=== PATIENT | female | born 1990 | race Caucasian/White ===

== ENCOUNTER → 2018-08-10 13:41 | Outpatient (REF) | payer MEDICAID, SELFPAY ==
[2018-08-10 18:05] LABS: Basophils % 0.4 % (0.1-2.0); Eosinophils # 0.1 K/mm3 (0.0-0.4); Eosinophils % 1.7 % (0.1-12.0); Hematocrit 40.4 % (37.0-47.0); Hemoglobin 12.9 g/dL (12.2-16.2); Lymphocytes # 1.5 K/mm3 (0.7-4.5); Lymphocytes % 23.8 K/mm3 (10-50); Mean Corpuscular HGB Conc 31.9 g/dL (31.8-35.4); Mean Corpuscular Hemoglobin 26.9 pg (27.0-31.2); Mean Corpuscular Volume 84.3 fl (81-99); Mean Platelet Volume 8.3 fl (7.4-10.4); Monocytes # 0.2 K/mm3 (0.1-1.0); Monocytes % 3.3 % (1.7-9.3); Neutrophils # 4.3 K/mm3 (1.8-7.8); Neutrophils % 70.9 % (37.0-80.0); Platelet Count 236 K/mm3 (142-424); Red Blood Count 4.79 M/mm3 (4.20-5.40); Red Cell Distribution Width 13.7 % (11.5-17.5); White Blood Count 6.1 K/mm3 (4.8-10.8)
[2018-08-10 18:33] LABS: Alanine Aminotransferase 31 U/L (12-78); Albumin Level 3.3 gm/dL (3.4-5.0); Albumin/Globulin Ratio 0.9 (1.1-1.8); Alkaline Phosphatase 95 U/L (46-116); Aspartate Amino Transferase 16 U/L (15-37); Bilirubin,Total 0.5 mg/dL (0.2-1.0); Blood Urea Nitrogen 12 mg/dL (7-18); Carbon Dioxide 30 mmol/L (21.0-32.0); Chloride 103 mmol/L (98-107); Chol/HDL Ratio 3.2 (1-3.5); Cholesterol 184 mg/dL (140-200); Creatinine,Serum 0.75 mg/dL (0.55-1.02); Estimated Glomerular Filt Rate 91 ml/min (>60); GFR (African American) 110 ML/MIN (>60); Globulin 3.7 gm/dl (1.3-3.2); Glucose 136 mg/dL (74-106); HDL Cholesterol 57 mg/dL (29-89); LDL Cholesterol 104 mg/dL (0-130); Sodium 141 mmol/L (136-145); T4 (Thyroxine) 9.5 ug/dl (4.7-13.3); Thyroid Stimulating Hormone 1.34 uIU/ml (0.358-3.740); Triglycerides 116 mg/dL (30-200); VLDL Cholesterol 23 mg/dL (0-40)
[2018-08-12 09:32] LABS: Vitamin D 25 Hydroxy 33.6 ng/mL (30.0-100.0)
== END ==
LOC: LAB 13:41
PROVIDERS: Visit Provider Nurse Practitioner Family
DX: R53.83 Other fatigue (principal)
CPT/HCPCS: 80053; 80061; 82652; 84436; 84443; 85025

== ENCOUNTER → 2019-04-07 11:06 | Outpatient (CLI) | payer MEDICAID, SELFPAY ==
[2019-04-07 13:05] LABS: Free Thyroxine Index 2.3 ug/dL (5.93-13.13); T4 (Thyroxine) 8.1 ug/dl (4.7-13.3); Thyroid Stimulating Hormone 2.57 uIU/ml (0.358-3.740); Triiodothryronine (T3) Uptake 29 % (31-39)
== END ==
PROVIDERS: Visit Provider Nurse Practitioner Obstetrics & Gynecology
DX: R53.83 Other fatigue (principal); R68.89 Other general symptoms and signs
CPT/HCPCS: 36415; 84436; 84443; 84479

== ENCOUNTER → 2020-07-19 18:22 | Outpatient (CLI) | payer MEDICAID, SELFPAY ==
[2020-07-19 19:46] LABS: Basophils % 0.5 % (0.1-2.0); Eosinophils # 0.2 K/mm3 (0.0-0.4); Eosinophils % 2.9 % (0.1-12.0); Hematocrit 32.2 % (37.0-47.0); Hemoglobin 9.9 g/dL (12.2-16.2); Lymphocytes # 1.9 K/mm3 (0.7-4.5); Lymphocytes % 28.5 % (10-50); Mean Corpuscular HGB Conc 30.6 g/dL (31.8-35.4); Mean Corpuscular Hemoglobin 21.5 pg (27.0-31.2); Mean Corpuscular Volume 70.4 fl (81-99); Mean Platelet Volume 8.7 fl (7.4-10.4); Monocytes # 0.2 K/mm3 (0.1-1.0); Neutrophils # 4.4 K/mm3 (1.8-7.8); Platelet Count 321 K/mm3 (142-424); Red Blood Count 4.58 M/mm3 (4.20-5.40); Red Cell Distribution Width 18.8 % (11.5-17.5); White Blood Count 6.8 K/mm3 (4.8-10.8)
[2020-07-19 19:55] LABS: Alanine Aminotransferase 21 U/L (12-78); Albumin Level 3.9 g/dl (3.5-5.0); Albumin/Globulin Ratio 1.1 (1.1-1.8); Alkaline Phosphatase 113 U/L (38-126); Anion Gap 11.4 mEq/L (5-15); Aspartate Amino Transferase 33 U/L (14-36); Bilirubin,Total 0.5 mg/dl (0.2-1.3); Blood Urea Nitrogen 12 mg/dl (7-17); Calcium 9.6 mg/dl (8.4-10.2); Carbon Dioxide 28 mmol/L (22.0-30.0); Chloride 104 mmol/L (98-107); Chol/HDL Ratio 3.5 (1-3.5); Cholesterol 183 mg/dl (140-200); Estimated Glomerular Filt Rate 116 ml/min (>60); GFR (African American) 140 ML/MIN (>60); Globulin 3.6 g/dL (1.3-3.2); Glucose 169 mg/dl (74-100); HDL Cholesterol 52 mg/dl (40-60); Potassium 4.4 mmoL/L (3.5-5.1); Sodium 139 mmol/L (136-145); Total Protein,Serum 7.5 g/dl (6.3-8.2); Triglycerides 100 mg/dl (30-150); VLDL Cholesterol 20 mg/dL (0-40)
[2020-07-19 20:02] LABS: Total Iron Binding Capacity 464 ug/dL (265-497)
[2020-07-19 20:07] LABS: Direct LDL Cholesterol 120.82 mg/dL (100-129)
[2020-07-19 20:12] LABS: 25-OH Vitamin D, Total 21.9 ng/mL (30-100)
[2020-07-19 20:13] LABS: T4 (Thyroxine) 10.4 ug/dl (5.53-11.0)
[2020-07-19 21:01] LABS: Iron 36 ug/dL (37-170)
[2020-07-19 21:31] LABS: Ferritin 12.3 ng/ml (6.24-137)
[2020-07-19 22:32] LABS: Thyroid Stimulating Hormone 1.48 uIU/mL (0.465-4.68)
[2020-07-20 17:32] LABS: Hemoglobin A1C 7.9 % (4.0-6.0)
== END ==
PROVIDERS: Visit Provider Physician Assistant
DX: I10 Essential (primary) hypertension (principal); R53.83 Other fatigue
CPT/HCPCS: 80053; 80061; 82306; 82728; 83036; 83540; 83550; 84436; 84443; 85025

== ENCOUNTER → 2022-01-02 16:00 | Outpatient (CLI) | payer MEDICAID, SELFPAY ==
[2022-01-02 20:08] LABS: Alanine Aminotransferase 18 U/L (12-78); Albumin Level 4.1 g/dl (3.5-5.0); Albumin/Globulin Ratio 1.1 (1.1-1.8); Alkaline Phosphatase 101 U/L (38-126); Aspartate Amino Transferase 23 U/L (14-36); Bilirubin,Total 0.4 mg/dl (0.2-1.3); Blood Urea Nitrogen 19 mg/dl (7-17); Calcium 8.9 mg/dl (8.4-10.2); Carbon Dioxide 28 mmol/L (22.0-30.0); Chloride 102 mmol/L (98-107); Chol/HDL Ratio 3.5 (1-3.5); Cholesterol 194 mg/dl (140-200); Estimated Glomerular Filt Rate 115 ml/min (>60); GFR (African American) 139 ML/MIN (>60); Globulin 3.6 g/dL (1.3-3.2); Glucose 97 mg/dl (74-100); HDL Cholesterol 56 mg/dl (40-60); Sodium 138 mmol/L (136-145); Total Protein,Serum 7.7 g/dl (6.3-8.2); Triglycerides 145 mg/dl (30-150); VLDL Cholesterol 29 mg/dL (0-40)
[2022-01-02 20:19] LABS: Direct LDL Cholesterol 116.85 mg/dL (100-129)
[2022-01-02 20:25] LABS: 25-OH Vitamin D, Total 33.5 ng/mL (30-100)
[2022-01-02 20:26] LABS: T4 (Thyroxine) 8.7 ug/dl (5.53-11.0)
[2022-01-02 20:33] LABS: Basophils # 0.1 K/mm3 (0-0.2); Basophils % 0.7 % (0.1-2.0); Eosinophils # 0.2 K/mm3 (0.0-0.4); Eosinophils % 2.7 % (0.1-12.0); Hematocrit 33.6 % (37.0-47.0); Hemoglobin 9.9 g/dL (12.2-16.2); Lymphocytes # 2.2 K/mm3 (0.7-4.5); Lymphocytes % 26.1 % (10-50); Mean Corpuscular HGB Conc 29.6 g/dL (31.8-35.4); Mean Corpuscular Hemoglobin 20.8 pg (27.0-31.2); Mean Corpuscular Volume 70.3 fl (81-99); Mean Platelet Volume 7.4 fl (7.4-10.4); Monocytes # 0.3 K/mm3 (0.1-1.0); Monocytes % 3.5 % (1.7-9.3); Neutrophils # 5.5 K/mm3 (1.8-7.8); Neutrophils % 67.1 % (37.0-80.0); Platelet Count 471 K/mm3 (142-424); Red Blood Count 4.77 M/mm3 (4.20-5.40); White Blood Count 8.3 K/mm3 (4.8-10.8)
[2022-01-02 21:21] LABS: Hemoglobin A1C 6.1 % (4.0-6.0)
== END ==
PROVIDERS: Visit Provider Nurse Practitioner Family
DX: E11.9 Type 2 diabetes mellitus without complications (principal); R53.83 Other fatigue; Z79.84 Long term (current) use of oral hypoglycemic drugs
CPT/HCPCS: 80053; 80061; 82306; 83036; 84436; 84443; 85025

== ENCOUNTER → 2022-10-15 08:53 | Outpatient (CLI) | payer MEDICAID, SELFPAY | PROVIDERS: PCP Physician Assistant; Visit Provider Physician Assistant | DX: Z01.818 Encounter for other preprocedural examination (principal); E66.9 Obesity, unspecified; Z68.42 Body mass index [BMI] 45.0-49.9, adult | CPT/HCPCS: 94060; 94726; 94729 ==

== ENCOUNTER → 2022-11-24 11:18 | Outpatient (CLI) | payer MEDICAID, SELFPAY ==
[2022-11-26 23:26] LABS: Neisseria gonorrhoeae, NAA Negative (Negative)
== END ==
PROVIDERS: PCP Student in an Organized Health Care Education/Training Program; Visit Provider Student in an Organized Health Care Education/Training Program
DX: N89.8 Other specified noninflammatory disorders of vagina (principal)
CPT/HCPCS: 87491; 87591

== ENCOUNTER → 2023-01-01 12:00 | Outpatient (CLI) | payer MEDICAID, SELFPAY ==
[2023-01-01 14:24] LABS: Basophils # 0.1 K/mm3 (0-0.2); Basophils % 0.9 % (0.1-2.0); Eosinophils # 0.2 K/mm3 (0.0-0.4); Eosinophils % 2.7 % (0.1-12.0); Hematocrit 38.2 % (37.0-47.0); Hemoglobin 11.8 g/dL (12.2-16.2); Lymphocytes # 1.8 K/mm3 (0.7-4.5); Lymphocytes % 25.1 % (10-50); Mean Corpuscular Hemoglobin 22.9 pg (27.0-31.2); Mean Platelet Volume 8.2 fl (7.4-10.4); Monocytes # 0.2 K/mm3 (0.1-1.0); Monocytes % 3.2 % (1.7-9.3); Neutrophils % 68.1 % (37.0-80.0); Platelet Count 516 K/mm3 (142-424); Red Blood Count 5.15 M/mm3 (4.20-5.40); Red Cell Distribution Width 17.5 % (11.5-17.5); White Blood Count 7.4 K/mm3 (4.8-10.8)
[2023-01-01 15:07] LABS: Alanine Aminotransferase 27 U/L (12-78); Albumin/Globulin Ratio 1.1 (1.1-1.8); Alkaline Phosphatase 111 U/L (38-126); Anion Gap 5.7 mEq/L (5-15); Aspartate Amino Transferase 28 U/L (14-36); Bilirubin,Total 0.6 mg/dl (0.2-1.3); Blood Urea Nitrogen 16 mg/dl (7-17); Calcium 9.1 mg/dl (8.4-10.2); Carbon Dioxide 30 mmol/L (22.0-30.0); Chloride 107 mmol/L (98-107); Chol/HDL Ratio 3.9 (1-3.5); Cholesterol 213 mg/dl (140-200); Estimated Glomerular Filt Rate 96 ml/min (>60); GFR (African American) 116 ML/MIN (>60); Globulin 3.5 g/dL (1.3-3.2); Glucose 117 mg/dl (74-100); HDL Cholesterol 54 mg/dl (40-60); Potassium 4.7 mmoL/L (3.5-5.1); Sodium 138 mmol/L (136-145); Total Protein,Serum 7.5 g/dl (6.3-8.2); Triglycerides 120 mg/dl (30-150); VLDL Cholesterol 24 mg/dL (0-40)
[2023-01-01 15:19] LABS: Direct LDL Cholesterol 125.99 mg/dL (100-129)
[2023-01-01 15:22] LABS: 25-OH Vitamin D, Total 43.4 ng/mL (30-100)
[2023-01-01 15:39] LABS: Thyroid Stimulating Hormone 1.18 uIU/mL (0.465-4.68)
[2023-01-01 16:09] LABS: Hemoglobin A1C 5.7 % (4.0-6.0)
== END ==
PROVIDERS: PCP Physician Assistant; Visit Provider Physician Assistant
DX: E11.9 Type 2 diabetes mellitus without complications (principal); Z79.84 Long term (current) use of oral hypoglycemic drugs; E66.01 Morbid (severe) obesity due to excess calories; Z68.42 Body mass index [BMI] 45.0-49.9, adult
CPT/HCPCS: 80053; 80061; 82306; 83036; 84443; 85025

== ENCOUNTER 2024-03-28 13:41 | Outpatient (CLI) | payer MEDICAID, SELFPAY ==
[2024-03-28 21:29] LABS: Basophils # 0.1 K/mm3 (0-0.2); Basophils % 0.7 % (0.1-2.0); Eosinophils # 0.1 K/mm3 (0.0-0.4); Eosinophils % 1.3 % (0.1-12.0); Hematocrit 43.6 % (37.0-47.0); Hemoglobin 14.1 g/dL (12.2-16.2); Lymphocytes # 2.2 K/mm3 (0.7-4.5); Lymphocytes % 23.7 % (10-50); Mean Corpuscular HGB Conc 32.3 g/dL (31.8-35.4); Mean Corpuscular Hemoglobin 28.6 pg (27.0-31.2); Mean Corpuscular Volume 88.6 fl (81-99); Mean Platelet Volume 9.5 fl (7.4-10.4); Monocytes # 0.4 K/mm3 (0.1-1.0); Neutrophils # 6.4 K/mm3 (1.8-7.8); Neutrophils % 70.2 % (37.0-80.0); Platelet Count 319 K/mm3 (142-424); Red Blood Count 4.92 M/mm3 (4.20-5.40); Red Cell Distribution Width 14.9 % (11.5-17.5); White Blood Count 9.1 K/mm3 (4.8-10.8)
[2024-03-28 22:20] LABS: Alanine Aminotransferase 36 U/L (12-78); Albumin/Globulin Ratio 1.3 (1.1-1.8); Alkaline Phosphatase 109 U/L (38-126); Anion Gap 15.9 mEq/L (5-15); Aspartate Amino Transferase 30 U/L (14-36); Bilirubin,Total 0.5 mg/dl (0.2-1.3); Blood Urea Nitrogen 15 mg/dl (7-17); Calcium 10.3 mg/dl (8.4-10.2); Carbon Dioxide 28 mmol/L (22.0-30.0); Chloride 103 mmol/L (98-107); Chol/HDL Ratio 3.8 (1-3.5); Cholesterol 218 mg/dl (140-200); Estimated Glomerular Filt Rate 95 ml/min (>60); GFR (African American) 115 ML/MIN (>60); Globulin 3.1 g/dL (1.3-3.2); Glucose 105 mg/dl (74-100); HDL Cholesterol 58 mg/dl (40-60); Potassium 4.9 mmoL/L (3.5-5.1); Sodium 142 mmol/L (136-145); Total Protein,Serum 7.1 g/dl (6.3-8.2); Triglycerides 103 mg/dl (30-150); VLDL Cholesterol 21 mg/dL (0-40)
[2024-03-28 22:31] LABS: Direct LDL Cholesterol 137.74 mg/dL (100-129)
[2024-03-28 22:41] LABS: 25-OH Vitamin D, Total 24.1 ng/mL (30-100)
[2024-03-28 22:43] LABS: Hemoglobin A1C 6.3 % (4.0-6.0)
[2024-03-28 22:53] LABS: Thyroid Stimulating Hormone 0.94 uIU/mL (0.465-4.68)
== END 2024-03-28 23:59 | disposition home or self-care (01) ==
LOC: LAB.DROPOF 03-29 13:41
PROVIDERS: PCP Physician Assistant; Visit Provider Physician Assistant
DX: E11.9 Type 2 diabetes mellitus without complications (principal); I10 Essential (primary) hypertension; E55.9 Vitamin D deficiency, unspecified; Z79.84 Long term (current) use of oral hypoglycemic drugs; Z79.899 Other long term (current) drug therapy
CPT/HCPCS: 80053; 80061; 82306; 83036; 84443; 85025

== ENCOUNTER 2025-07-13 13:25 | Outpatient (CLI) | payer MEDICAID, SELFPAY ==
--- OUTSIDE RECORDS SUMMARY | 2025-07-13 13:28 | XMS_ITS | Clinical Summary ---
Author Organization [facility] Address [address] [place] [address] Care Team Providers Care Apple Press Operator Name Role Phone Shira Canchola Primary Care Provider [phone] Allergies No known active allergies Medications * This document contains information received from the source organization and may not represent a complete record from that organization. ibuprofen (ADVIL,MOTRIN) 200 MG tablet Take 1 tablet by mouth Every 6 (Six) Hours As Needed for Mild Pain. Active Blood Glucose Monitoring Suppl (ONE TOUCH ULTRA 2) w/Device kit USE DIRCETED 0 Active Slow Fe 142 (45 Fe) MG tablet controlled-releas e Take 45 mg by mouth Daily. 0 Active OneTouch Ultra test strip TEST DAILY DIRECTED 0 Active TRUEplus Lancets 28G misc See Admin Instructions. 0 Active ascorbic acid (VITAMIN C) 500 MG tablet 3 Active Cholecalciferol (Vitamin D3) 25 MCG (1000 UT) capsule Take 1 capsule by mouth Daily. 3 Active metFORMIN (GLUCOPHAGE) 500 MG tablet Take 1 tablet by mouth Daily. Active Multiple Vitamins/Iron tablet Take 1 tablet by mouth Daily. 4 Active spironolactone (ALDACTONE) 25 MG tablet Take 1 tablet by mouth Daily. Active lisinopril (PRINIVIL,ZESTRIL ) 10 MG tabletIndications :Primary hypertension Take 1 tablet by mouth Daily. 30 tablet 11 4 Active metoprolol succinate XL (TOPROL-XL) 25 MG 24 hr tablet TAKE 1 TABLET BY MOUTH EVERY DAY 90 tablet 3 5 Active Active Problems Problem Noted Date Diagnosed Date Hypersomnia 02/04/2024 Assessment & Plan (02/04/2024 12:12 PM EDT): Continues to have excessive daytime sleepiness and fatigue and would like to be re-tested for sleep apnea. She is unable to go to the sleep lab for PSG due to her children not having a merchandising internship. Patient sister is here with her today and says she gets her kids off to school but goes back to bed and sleeps for hours. Patient c/o EDS, fatigue, and frequent napping. Pre-operative cardiovascular examination 023 Assessment & Plan (12/30/2022 3:49 PM EST): Plan to proceed Former smoker Fatigue Insomnia Dyspepsia Hypertension Assessment & Plan (02/04/2024 12:15 PM EDT): Hypertension is stable and controlled Continue current treatment regimen. Blood pressure will be reassessed at next follow up . Untreated sleep apnea may potentiate HTN. Refill Lisinopril 10mg daily. Assessment & Plan (12/30/2022 3:49 PM EST): Stable. Continue plan of care. Treating obesity will likely benefit blood pressure. Dyspnea on exertion Morbid obesity with BMI of 50.0-59.9, adult Assessment & Plan (12/30/2022 3:49 PM EST): Patient plans to have very surgical intervention at [facility]. Hyperlipidemia Vitamin D deficiency Heartburn Anxiety Depression Diabetes Overview (08/14/2020): newly dx, on Metformin, never on insulin Current use of aspirin Overview (08/14/2020): given DM dx Iron deficiency Overview (08/14/2020): on daily PO supplements H. pylori infection Overview (08/23/2020): UBT (+) - PrevPak RX 08/23/20 Encounters Date Type Department Care Team Description 04/21/2025 Refill [facility] [address] [place] [address] Carol Farmer APRN Med Refill from Last 3 Months Family History Medical History Relation Name Comments Diabetes Father Heart attack Father Sleep apnea Father Stroke Father Diabetes Maternal Grandmother Diabetes Mother Heart attack Mother Stroke Mother Diabetes Paternal Grandfather Heart attack Paternal Grandfather Diabetes Paternal Grandmother Hypertension Sister 1 Obesity Sister 1 Sleep apnea Sister 1 Hypertension Sister 2 Obesity Sister 2 Sleep apnea Sister 2 Relation Name Status Comments Father (Age 60) Maternal Grandmother Mother (Age 36) Paternal Grandfather Paternal Grandmother Sister 1 Alive Sister 2 Alive Social History Tobacco Use Types Packs/Day Years Used Date Smoking Tobacco: Former Cigarettes 0.5 1 2 004 - 2005 Passive Smoke Exposure: Never Smokeless Tobacco: Never Tobacco Cessation:Counseling Given: No Alcohol Use Standard Drinks/Week Comments Never 0 (1 standard drink = 0.6 oz pur e alcohol) AUDIT-C Answer Date Recorded Q1: How often do you have a drink containing alc ohol? Never 07/04/2020 Average Number of Drinks Not on file 020 Frequency of Binge Drinking Not on file 06/10 Abuse Screen Answer Date Recorded Unsafe at Home or Work/School Not on file Feels Threatened by Someone? Not on file 07/2023 Does Anyone Keep You from Co ntacting Others or Doint Things Outside the Home? Not on file 08/17/2023 Physical Sign of Abuse Present Not on file 1 Housing Stability Answer Date Recorded Current Living Arrangements Not on file 07/2023 Potentially Unsafe Housing Conditions Not on chidi e 08/17/2023 Family and Community Support Answer Bebo e Recorded Help with Day-to-Day Activities Not on file 08/17/2023 Lonely or Isolated Not on file 08/17/2023 Employment Answer Date Recorded Do you want help finding or keeping work or a juana b? Not on file 08/17/2023 Disabilities Answer Date Recorded Concentrating, Remembering, or Making Decisions Difficulty Not on file 08/17/2023 Doing Errands Independently Difficulty Not on fi le 08/17/2023 Education Answer Date Recorded Help with school or training? Not on file Preferred Language Not on file 08/17/2023 Comments Unknown Sex and Gender Information Value Date Recorded Sex Assigned at Not on file Legal Sex Female 1:29 PM EDT Gender Identity Not on file Sexual Orientation Not on file Last Filed Vital Signs Vital Sign Reading Time Taken Comments Blood Pressure 128/72 02/04/2024 10:58 AM EDT Pulse 67 02/04/2024 10:58 AM EDT Temperature 36.9 C (98.5 F) 08/14/2020 7:50 AM EDT Respiratory Rate 18 08/14/2020 7:50 AM EDT Oxygen Saturation 98% 02/04/2024 10:58 AM EDT Inhaled Oxygen Concentration - - Weight 149 kg (328 lb) 02/04/2024 10:58 AM EDT Height 167.6 cm (5' 6 ) 02/04/2024 10:58 AM EDT Body Mass Index 52.94 02/04/2024 10:58 AM EDT Plan of Treatment Health Maintenance Due Date Last Done Comments Annual Gynecologic Pelvic an d Breast Exam 1988 DIABETIC EYE EXAM 1998 DIABETIC FOOT EXAM 1998 URINE MICROALBUMIN-CREATININ E RATIO (uACR) 1998 Hepatitis B (2 of 3 - 3-dose series) 02/14/200001/07 Pneumococcal Vaccine 0-49 (1 of 2 - PCV) 2007 PAP SMEAR 2009 TDAP/TD VACCINES (2 - Tdap) 01/05/2013 01/05/2003 ANNUAL PHYSICAL 07/04/2020 HEPATITIS C SCREENING 07/04/2020 HEMOGLOBIN A1C 02/12/2021 08/14/2020 LIPID PANEL 11/13/2023 11/13/2022, 010 03/2023, 08/14/2020 COVID-19 Vaccine ( season) 2024, 07/16/2021 INFLUENZA VACCINE 08/09/2025 08/10/2018, 10/01/2010 Procedures Procedure Name Priority Date/Time Associated Diagnosis Comments HEMOGLOBIN A1C Routine 08/14/2020 10:44 AM EDT Diabetes mellitus type 2 in obese Hypertension, unspecified type Hyperlipidemia, unspecified hyperlipidemia type Heartburn Dyspepsia LIPID PANEL Routine 08/14/2020 10:44 AM EDT Diabetes mellitus type 2 in obese Hypertension, unspecified type Hyperlipidemia, unspecified hyperlipidemia type Heartburn Dyspepsia from Last 3 Months or Most Recently Relevant to Health Maintenance Results * (ABNORMAL) Hemoglobin A1c (08/14/2020 10:44 AM EDT) Hemoglobin A1C 6.60(H) 4.80 - 5.60 % [facility] Comment: Hemoglobin A1C Ranges: Increased Risk for Diabetes 5.7% to 6.4% Diabetes >= 6.5% Diabetic Goal < 7.0% Blood 08/14/2020 10:4 4 AM EDT 08/14/2020 Narrative [facility] ([facility]) - 08/15/2020 6:07 PM EDT Performed at: [address] [place] [address] [id number] Rehabilitation Manager: Michael Diane MD, Phone: [phone] Patient Fasting: N us Nadia YEE LAB BLOOD ORDERABLES Final Result [facility] ([facility]) [address] [place] [address], [facility] [address] [place] [address], [place] [phone] * Lipid Panel (08/14/2020 10:44 AM EDT) Total Cholesterol 118 0 - 200 mg/dL [facility] Triglycerides 84 0 - 150 mg/dL [facility] HDL Cholesterol 48 40 - 60 mg/dL [facility] VLDL Cholesterol Roney 16.8 mg/dL [facility] LDL Chol Calc (NIH) 53 0 - 100 mg/dL [facility] Blood 08/14/2020 10:4 4 AM EDT 08/14/2020 Narrative [facility] ([facility]) - 08/15/2020 6:07 PM EDT Performed at: [address] [place] [address] [id number] Rehabilitation Manager: Michael Diane MD, Phone: [phone] Patient Fasting: N us Nadia YEE LAB BLOOD ORDERABLES Final Result [facility] ([facility]) [address] [place] [address], [place] [phone] [facility] [address] [place] [address], [place] [phone] from Last 3 Months or Most Recently Relevant to Health Maintenance Insurance [facility] MEDICAID Care Teams Apple Press Operator Relationship Specialty Start Date End Date Shira Canchola PA PCP - General Physician Retail Advertising Sales Manager 01/20/20
== END 2025-07-13 23:59 | disposition home or self-care (01) ==
LOC: LAB 13:26
PROVIDERS: PCP Physician Assistant; Visit Provider Obstetrics & Gynecology
DX: Z34.90 Encounter for supervision of normal pregnancy, unspecified, unspecified trimester (principal); N92.6 Irregular menstruation, unspecified
CPT/HCPCS: 36415; 84144; 84702

== ENCOUNTER 2025-07-17 01:31 | Emergency (ER) | payer MEDICAID, SELFPAY ==
--- NOTE | 2025-07-17 01:34 | HMH.EDGENADL ---
Discharge Plan Disposition Patient Disposition: Home, Self-Care Condition: Good Prescriptions Prescriptions: No Action (DME) Blood Glucose Test Strip See Rx Instructions .ROUTE .MEDSUPPLY Qty: 100 2RF Rx Instructions: daily As directed (DME) lancets [CareTouch Safety Lancets] 28 gauge misc See Rx Instructions .ROUTE .MEDSUPPLY Qty: 100 2RF Rx Instructions: daily As directed metoprolol succinate 25 mg tablet extended release 24 hr 25 mg PO (DME) Dexcom G6 Sensor Device See Rx Instructions .Route Qty: 3 5RF Rx Instructions: As directed (DME) Dexcom G6 Poultry Farm Supervisor Misc See Rx Instructions .Route Qty: 1 0RF Rx Instructions: As directed (DME) Dexcom G6 Transmitter Device See Rx Instructions .Route Qty: 1 0RF Rx Instructions: As directed lisinopril 10 mg tablet 10 mg PO DAILY Patient Comments: TAKE 1 TABLET BY MOUTH DAILY (DME) Blood Glucose Test Strip See Rx Instructions .Route Qty: 100 5RF Rx Instructions: BID testing (DME) blood-glucose meter [Blood Glucose Monitoring] Kit See Rx Instructions .ROUTE .MEDSUPPLY Qty: 1 0RF Rx Instructions: As directed alcohol swabs [Alcohol Pads] Pads, Medicated 1 pad topical BID Qty: 100 5RF (DME) lancets [Acti-Hernan Lancets] 28 gauge misc See Rx Instructions .Route Qty: 100 3RF Rx Instructions: BID testing ergocalciferol (vitamin D2) 1,250 mcg (50,000 unit) capsule 50,000 unit PO QWEEK 90 Days Qty: 14 3RF (DME) blood-glucose meter Misc See Rx Instructions .ROUTE .MEDSUPPLY Qty: 1 0RF Rx Instructions: As directed mebendazole 100 mg tablet,chewable 100 mg PO ONCE 1 Days Qty: 2 1RF Rx Instructions: Take one dose now; repeat in 2 weeks; repeat if still worms present Proctofoam HC 1-1 % foam 1 applic ID QID PRN (Reason: hemorrhoids) Qty: 10 0RF ferrous sulfate 324 mg (65 mg iron) tablet,delayed release (DR/EC) See Rx Instructions .ROUTE .COMPLEX Qty: 180 0RF Dose Instruction: TAKE 1 TABLET BY MOUTH TWICE DAILY Rx Instructions: TAKE 1 TABLET BY MOUTH TWICE DAILY spironolactone 25 mg tablet See Rx Instructions .ROUTE .COMPLEX Qty: 90 0RF Dose Instruction: TAKE 1 TABLET BY MOUTH DAILY Rx Instructions: TAKE 1 TABLET BY MOUTH DAILY ibuprofen 800 mg tablet 800 mg PO Q8H PRN (Reason: pain/fev) Qty: 30 0RF acetaminophen [Tylenol Extra Strength] 500 mg tablet 500 mg PO Q6H PRN (Reason: fever or pain) Qty: 30 0RF guaifenesin [Mucinex] 1,200 mg tablet extended release 12hr 1,200 mg PO BID Qty: 20 0RF atorvastatin 20 mg tablet 20 mg PO HS Qty: 30 2RF cholecalciferol (vitamin D3) 25 mcg (1,000 unit) capsule 1,000 unit PO DAILY Qty: 90 1RF metformin 500 mg tablet extended release 24 hr See Rx Instructions .ROUTE .COMPLEX Qty: 90 0RF Dose Instruction: TAKE 1 TABLET BY MOUTH DAILY Rx Instructions: TAKE 1 TABLET BY MOUTH DAILY Rybelsus 3 mg tablet See Rx Instructions .ROUTE .COMPLEX Qty: 30 0RF Dose Instruction: TAKE 1 TABLET BY MOUTH DAILY Rx Instructions: TAKE 1 TABLET BY MOUTH DAILY multivitamin with iron Tablet See Rx Instructions .ROUTE .COMPLEX Qty: 90 0RF Dose Instruction: TAKE 1 TABLET BY MOUTH DAILY Rx Instructions: TAKE 1 TABLET BY MOUTH DAILY ascorbic acid (vitamin C) [Vitamin C] 500 mg tablet See Rx Instructions .ROUTE .COMPLEX Qty: 60 0RF Dose Instruction: TAKE 2 TABLETS BY MOUTH DAILY FOR 30 DAYS; THEN TAKE 1 TABLET BY MOUTH TWICE DAILY WITH IRON Rx Instructions: TAKE 2 TABLETS BY MOUTH DAILY FOR 30 DAYS; THEN TAKE 1 TABLET BY MOUTH TWICE DAILY WITH IRON semaglutide 7 mg tablet 7 mg PO DAILY Qty: 90 3RF Referrals Follow up/Referrals: Shira Canchola PA [Primary Care Provider, Medical] - See instructions Activity Restrictions/Add. Instructions Additional Instructions/Restrictions: Please follow-up with your HOT CAR OPERATOR. Please return to the emergency department if you develop any new or worsening symptoms or become concerned for your health. Clinical Impressions Clinical Impression: Vaginal bleeding affecting early Instructions Patient Instructions: DI for Acute Abdominal Pain Print Language Print Language: Ukrainian Discharge ED Provider: Bertrand Ca General Adult HPI General Chief complaint: Abdominal Pain Stated complaint: 6 wks antepartum, bleeding, pain Time Seen by Provider: 07/17/25 01:34 History of Present Illness HPI narrative: 35-year-old female with history of obesity, diabetes, hypertension presents for vaginal bleeding in early . She reports she had sudden onset of moderate vaginal bleeding shortly prior to arrival, she noticed that upon awakening. She also has some left lower quadrant/left pelvic abdominal pain associated with it. She denies any urinary symptoms. She has not had any trouble with bleeding in any of her other pregnancies. She think she is about 6 weeks . Related Data Home Medications ?Medication ?Instructions ?Recorded ?Confirmed metoprolol succinate 25 mg 25 mg PO 01/01/23 03/28/24 tablet,extended release 24 hr lisinopril 10 mg tablet 10 mg PO DAILY 03/28/24 03/28/24 Previous Rx's ?Medication ?Instructions ?Recorded blood sugar diagnostic (Blood #100 ea 01/02/22 Glucose Test strips) lancets 28 gauge (CareTouch Safety #100 ea 01/02/22 Lancets) blood-glucose meter #1 ea 01/03/22 ergocalciferol (vitamin D2) 1,250 50,000 unit PO QWEEK 90 days #14 01/03/22 mcg (50,000 unit) capsule caps blood-glucose sensor (Dexcom G6 #3 ea 01/01/23 Sensor device) blood-glucose transmitter (Dexcom #1 ea 01/01/23 G6 Transmitter device) blood-glucose,packaging sales representative,cont #1 ea 01/01/23 (Dexcom G6 Poultry Farm Supervisor) mebendazole 100 mg chewable tablet 100 mg PO ONCE 1 day #2 tabs 01/18/24 alcohol swabs (Alcohol Pads) 1 pad topical BID #100 ea 03/28/24 blood sugar diagnostic (Blood #100 ea 03/28/24 Glucose Test strips) blood-glucose meter (Blood Glucose #1 03/28/24 Monitoring kit) lancets 28 gauge (Acti-Hernan #100 ea 03/28/24 Lancets) hydrocortisone 1 %-pramoxine 1 % 1 applic ID QID PRN hemorrhoids 05/19/24 rectal foam (Proctofoam HC) #10 grams ferrous sulfate 324 mg (65 mg See Rx Instructions .Route 06/23/24 iron) tablet,delayed release .COMPLEX #180 tabs spironolactone 25 mg tablet See Rx Instructions .Route 06/23/24 .COMPLEX #90 tabs acetaminophen 500 mg tablet 500 mg PO Q6H PRN fever or pain 06/30/24 (Tylenol Extra Strength) #30 tabs guaifenesin 1,200 mg tablet, 1,200 mg PO BID #20 tabs 06/30/24 extended release 12 hr (Mucinex) ibuprofen 800 mg tablet 800 mg PO Q8H PRN pain/fev #30 tabs 06/30/24 atorvastatin 20 mg tablet 20 mg PO HS #30 tabs 07/07/24 cholecalciferol (vitamin D3) 25 1,000 unit PO DAILY #90 caps 07/07/24 mcg (1,000 unit) capsule metformin 500 mg tablet,extended See Rx Instructions .Route 07/28/24 release 24 hr .COMPLEX #90 tabs semaglutide 3 mg tablet (Rybelsus) See Rx Instructions .Route 07/28/24 .COMPLEX #30 tabs ascorbic acid (vitamin C) 500 mg See Rx Instructions .Route 08/22/24 tablet (Vitamin C) .COMPLEX #60 tabs multivitamin with iron See Rx Instructions .Route 08/22/24 .COMPLEX #90 tabs semaglutide 7 mg tablet 7 mg PO DAILY #90 tabs 09/02/24 Allergies Allergy/AdvReac Type Severity Reaction Status Date / Time NO KNOWN ALLERGIES Allergy Uncoded 03/28/24 13:30 [facility] Disclaimer: The information contained in this section may have been updated after the patient was seen, as this information can be updated by other users. Medical History BMI 50.0-59.9, adult Abnormal weight Hypertension Anxiety Obesity Social History Smoking Status: Never smoker alcohol intake: never substance use type: denies use current occupational status: unemployed Travel in the last 8 weeks?: None Have you lived/traveled outside US in past 30 days?: No Contact w/someone who lives/traveled outside US past 30 days?: No Exposure to someone with infectious disease in past 14 days?: No Do you have a fever (greater than 100.4 F or 38 C)?: No Have you tested positive for COVID-19?: No Exposed to someone with COVID-19 in past 14 days?: No Do you have a sore throat?: No Do you have a cough?: No Do you have any weakness?: No Do you have any diarrhea?: No Are you experiencing any unusual bleeding?: Yes Do you have any muscle aches/pain?: No Do you have any abdominal pain?: No Are you experiencing loss of taste or smell?: No Other Medical History Have you received the Flu Vaccine for this season: No Have you received the Pneumonia Vaccine: No ROS Obtained: Yes All systems reviewed & no additional complaints except as documented Physical Exam General General appearance: alert and in no apparent distress Head Head exam: atraumatic and normocephalic Eye Eye exam: Present normal appearance, PERRL and EOMI ENT ENT exam: Present normal oropharynx and normal external ear exam Neck Neck exam: Present normal inspection and full ROM Chest Chest inspection: Present normal inspection and symmetric chest wall rise; Absent tenderness Respiratory Respiratory exam: Present normal lung sounds bilaterally; Absent respiratory distress Cardiovascular Cardiovascular exam: Present regular rate and normal rhythm Abdominal Exam Abdominal exam: Present soft; Absent distention, tenderness or guarding Extremities Exam Extremities exam: Present normal inspection; Absent edema or joint swelling Back Exam Back exam: Present normal inspection; Absent tenderness Neurological Exam Neurological exam: Present alert and oriented X3; Absent motor sensory deficit Psychiatric Psychiatric exam: Present normal affect and normal mood Skin Skin exam: Present warm, dry and normal color Lymphatic Lymphatic Findings: no adenopathy Medical Decision Making Medical Records Medical records reviewed: Yes I reviewed the patient's medical records. Screening: Per USPSTF and CDC recommendations, given the prevalence of disease in our region, it is our hospital?s policy to screen for HIV and viral Hepatitis for all patients aged 18 and over and those with ongoing risk factors. Jim Inquiry Pt receiving controlled substance: No Jim was queried for this patient: No Vital Signs: 07/17/25 01:43 07/17/25 02:45 07/17/25 04:02 Temperature 97.9 F 97.9 F Temperature Source Oral Oral Pulse Rate 62 78 Pulse Rate [Left] 75 Respiratory Rate 16 16 Blood Pressure 109/69 L 118/76 Blood Pressure [Right Arm] 154/75 H Blood Pressure Mean [Right Arm] 101 Blood Pressure Source Automatic Cuff Blood Pressure Source [Right Arm] Automatic Cuff Blood Pressure Position Sitting Blood Pressure Position [Right Arm] Sitting 02 Sat by Pulse Oximetry 95 100 Oxygen Delivery Method Room Air Room Air Lab Data Lab results reviewed: Yes I reviewed the patient's lab results. Lab Results 07/17/25 01:45: WBC 8.7, RBC 4.46, Hgb 13.2, Hct 38.7, MCV 86.8, MCH 29.6, MCHC 34.1, RDW 13.0, Plt Count 272, MPV 9.9, Neut % (Auto) 63.0, Lymph % (Auto) 28.5, [place] % (Auto) 6.1, Eos % (Auto) 1.5, Baso % (Auto) 0.6, Neut # (Auto) 5.5, Lymph # (Auto) 2.5, [place] # (Auto) 0.5, Eos # (Auto) 0.1, Baso # (Auto) 0.1, Sodium 139, Potassium 4.3, Chloride 107, Carbon Dioxide 26, Anion Gap 10.3, BUN 17, Creatinine 0.70, Estimated Creat Clear 187, Estimated GFR 94, Est GFR ( Amer) 114, Glucose 113 H, Calcium 9.7, Total Bilirubin 0.2, AST 24, ALT 19, Alkaline Phosphatase 69, Total Protein 6.8, Albumin 3.9, Globulin 2.9, Albumin/Globulin Ratio 1.3, HCG, Quant 59320 H 07/17/25 01:45 07/17/25 01:45 Orders (Tests/Meds): ORDERS Category Date Time Status Beta HCG, Quant [HCG,Quantitative] Stat Lab 07/17/25 01:45 Completed CBC w/Auto Diff [Complete Blood Count Auto Diff] Stat Lab 07/17/25 01:45 Completed CMP [Comprehensive Metabolic Panel] Stat Lab 07/17/25 01:45 Completed US OB transvaginal Stat Ultrasound 07/17/25 02:51 Completed Medical Decision Narrative: 35-year-old female G3, P2 at approximately 6 weeks presents for vaginal bleeding and left pelvic pain with of unknown location. History was obtained via interactive discussion with patient, family, chart review. On arrival, patient is [afebrile, hemodynamically stable, satting appropriately, alert, oriented x4, GCS 15], moving all extremities spontaneously. Full physical exam performed and significant for no significant abdominal tenderness on exam Differential includes but is not limited to ruptured ectopic , miscarriage, subchorionic hemorrhage, vaginal tear Workup initiated including CBC CMP quantitative beta-hCG, transvaginal ultrasound to assess for ectopic . On re-evaluation, patient [remains afebrile, HD stable.] Laboratory workup independently interpreted by me and significant for appropriately increasing quantitative beta-hCG, no anemia, normal renal function.. Imaging independently interpreted by me and significant for viable intrauterine without evidence of ectopic. See radiology read for full review of final results. Given patient history, exam and workup, patient's presentation most likely represents early bleeding, possibly resulting from small subchorionic hemorrhage. I discussed with patient that vaginal bleeding in early is common, but can be a sign of impending complication/miscarriage. I recommended that patient follow-up with her HOT CAR OPERATOR. Return precautions were given. Procedures Risk/Benefits of Procedure(s) Were Explained: Yes Critical Care Critical Care Time Critical Care Time: No
--- OUTSIDE RECORDS SUMMARY | 2025-07-17 01:37 | XMS_ITS | Referral Summary ---
Author Organization [employer] ([place], [place], [place], [place]) Address [address] [place] [address] Care Team Providers Care Education Paraprofessional Name Role Phone Shira Canchola PA-C Primary Care Provider [phone] Allergies No known active allergies Medications ergocalciferol (Vitamin D2) 1,250 mcg (50,000 unit) capsule Take 50,000 Units by mouth once a week. Active cholecalciferol , vitamin D3, 25 mcg (1,000 unit) capsule Take 1,000 Units by mouth daily. Active ascorbic acid, vitamin C, (ascorbic acid with soha hips) 500 MG tablet Take 500 mg by mouth daily. Active lisinopriL (PRINIVIL,ZESTR IL) 10 MG tablet Take 10 mg by mouth daily. Active metFORMIN (GLUCOPHAGE) 500 MG tablet Take 500 mg by mouth 2 (two) times daily with breakfast and dinner. Active metoprolol succinate (TOPROL-XL) 25 MG 24 hr tablet Take 25 mg by mouth daily. Active aspirin 81 MG EC tablet Take 81 mg by mouth daily. Active ferrous sulfate 325 (65 FE) MG EC tablet Take 325 mg by mouth 2 (two) times daily. Active Social History Tobacco Use Types Packs/Day Years Used Date Smoking Tobacco: Never Assessed Family and Community Support Answer Bebo e Recorded Help with Day to Day Activities Not on file 11/28/2023 Feeling Lonely or Isolated Not on file 11/28 Educational Attainment Answer Date Raymond rded Speak language other than Sammarinese at home Not on file 11/28/2023 Want help with school or training Not on file 11/28/2023 Substance Use Answer Date Recorded Used prescription meds for non-medical reasons N ot on file 11/28/2023 Used illegal drugs past 12 months Not on file 11/28/2023 Comments Unknown Sex and Gender Information Value Date Recorded Sex Assigned at Not on file 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 Gender Identity Not on file Sexual Orientation Not on file Last Filed Vital Signs Vital Sign Reading Time Taken Comments Blood Pressure 138/78 11/13/2022 7:10 AM EST Pulse 68 11/13/2022 7:10 AM EST Temperature 36.7 C (98.1 F) 11/13/2022 7:10 AM EST Respiratory Rate - - Oxygen Saturation 98% 11/13/2022 7:10 AM EST Inhaled Oxygen Concentration - - Weight 139.3 kg (307 lb) 11/13/2022 7:10 AM EST Height 167.6 cm (5' 6 ) 11/13/2022 7:10 AM EST Body Mass Index 49.55 11/13/2022 7:10 AM EST Plan of Treatment Not on file Procedures Procedure Name Priority Date/Time Associated Diagnosis Comments LIPID PANEL Add-On 11/13/2022 7:08 AM EST from Last 3 Months or Most Recently Relevant to Health Maintenance Results * (ABNORMAL) Lipid panel (11/13/2022 7:08 AM EST) Triglycerides 97 0 - 249 mg/dL 11/13/2022 9:58 AM [facility] Cholesterol 164 0 - 199 mg/dL 11/13/2022 9:58 AM [facility] Comment: 200 to 239 mg/dL = Moderate (borderline) >239 mg/dL = High HDL Cholesterol 47 >=40 mg/dL 11/13/2022 9:58 AM [facility] Comment: >=60 mg/dL = Desirable <40 mg/dL = Increased Risk All other components are listed individually or are calculations VLDL Cholesterol 19.4 5 - 40 mg/dL 11/13/2022 9:58 AM [facility] Cholesterol/HDL ratio 3.5(H) 0.0 - 3.2 11/13/2022 9:58 AM [facility] LDl/HDL Ratio 2 0 - 4 11/13/2022 9:58 AM [facility] LDL Cholesterol, Calculated 98 0 - 99 mg/dL 11/13/2022 9:58 AM EST [facility] RISK COMP 3 11/13/2022 9:58 AM EST [facility] Blood Venipuncture / Unknown 11/13/2022 7:08 AM EST 11/13/2022 7:14 AM EST us Talia Rhodes PA-C LAB BLOOD ORDERABLES Fin al Result [facility] [address] [facility] [address] [phone] from Last 3 Months or Most Recently Relevant to Health Maintenance Insurance [facility] Advance Directives For more information, please contact: [phone] Documents on File Type Date Recorded Patient Can Technician Expl anation Advance Directives and [place]ansisco g Will 11/13/2022 6:33 AM * Full Code (Latest Code Status on File) Date Activated Date Inactivated Comments 11/13/2022 5:57 AM 11/14/2022 5:18 AM Care Teams Education Paraprofessional Relationship Specialty Start Date End Date Shira Canchola PA-C [address] [place] [address] PCP - General Physician Biomass Production Manager 11/13/22
--- OUTSIDE RECORDS SUMMARY | 2025-07-17 01:37 | XMS_ITS | Clinical Summary ---
Author Organization [facility] Address [address] [place] [address] Care Team Providers Care Cordwood Cutter Helper Name Role Phone Shira Canchola Primary Care Provider [phone] Allergies No known active allergies Medications * [...] due to her children not having a geology technician. Patient sister is here with her today [...] plans to have very surgical intervention at [facility]. Hyperlipidemia Vitamin D deficiency Heartburn Anxiety Depression Diabetes Overview (08/14/2020): newly dx, on Metformin, never on insulin Current use of aspirin Overview (08/14/2020): given DM dx Iron deficiency Overview (08/14/2020): on daily PO supplements H. pylori infection Overview (08/23/2020): UBT (+) - PrevPak RX 08/23/20 Encounters Date Type Department Care Team Description 04/21/2025 Refill [facility] [address] [place] [address] [...] A1C 02/12/2021 08/14/2020 LIPID PANEL 11/13/2023 11/13/2022, 0 03/2023, 08/14/2020 COVID-19 Vaccine ( season) 2025, 07/16/2021 INFLUENZA VACCINE 08/09/2025 08/10/2018, 10/01/2010 Procedures [...] - 08/15/2020 6:07 PM EDT Performed at: [address] [place] [address] [id number] Transaction Coordinator: Michael Diane MD, Phone: [phone] Patient Fasting: N us Nadia YEE LAB BLOOD ORDERABLES Final Result [facility] [address] [place] [address], [facility] [address] [place] [address], [place] [phone] * Lipid Panel (08/14/2020 10:44 AM EDT) [...] - 08/15/2020 6:07 PM EDT Performed at: [address] [place] [address] [id number] Transaction Coordinator: Michael Diane MD, Phone: [phone] Patient Fasting: N us Nadia YEE LAB BLOOD ORDERABLES Final Result [facility] [address] [place] [address], [place] [phone] [facility] [address] [place] [address], [place] [phone] from Last 3 Months or Most Recently Relevant to Health Maintenance Insurance [facility] MEDICAID Care Teams Cordwood Cutter Helper Relationship Specialty Start Date End Date Shira Canchola PA PCP - General Physician Mercantile Reporter 01/20/20
--- OUTSIDE RECORDS SUMMARY | 2025-07-17 01:37 | XMS_ITS | Clinical Summary ---
Author Organization [employer] ([place], [place], [place], [place]) Address [address] [place] [address] Care Team Providers Care Naval Designer Name Role Phone Shira Canchola PA-C Primary Care Provider [phone] Allergies No known active allergies Medications ergocalciferol [...] Date Raymond rded Speak language other than Samoan at home Not on file 11/28/2023 Want help with school or training Not on file 11/28/2023 Substance Use Answer Date Recorded Used prescription meds for non-medical reasons N ot on file 11/28/2023 Used illegal drugs past 12 months Not on file 11/28/2023 Comments Unknown Sex and Gender Information Value Date Recorded Sex Assigned at Not on file 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 Gender Identity Not on file Sexual Orientation [...] 11/13/2022 7:10 AM EST Plan of Treatment Health Maintenance Due Date Last Done Comments Depression Screening (12+) 2000 Tobacco Cessation Counseling and Screening (12+) 2000 HIV Screening 2003 Hepatitis C Screening 2006 Pap Smear 2009 DTAP/TDAP/TD VACCINES (2 - T d or Tdap) 01/05/2013 01/05/2003 COVID-19 VACCINE (2024-2 6 season) 2025 08/06/2021, 07/16/2021 Influenza Vaccine (#1) 2025 Lipid Panel 11/13/2025 11/13/2022 Pneumococcal Vaccine: 0-49 Years Aged Out No longer eligible b ased on patient's age to complete this topic Procedures Procedure Name Priority Date/Time Associated Diagnosis Comments LIPID PANEL Add-On 11/13/2022 7:08 AM EST from Last 3 Months or Most Recently Relevant to Health Maintenance Results * (ABNORMAL) Lipid panel (11/13/2022 7:08 AM EST) Triglycerides 97 0 - 249 mg/dL 11/13/2022 9:58 AM EST [facility] Cholesterol 164 0 - 199 mg/dL 11/13/2022 9:58 AM EST [facility] Comment: 200 to 239 mg/dL = Moderate (borderline) >239 mg/dL = High HDL Cholesterol 47 >=40 mg/dL 11/13/2022 9:58 AM EST [facility] Comment: >=60 mg/dL = Desirable <40 mg/dL = Increased Risk All other components are listed individually or are calculations VLDL Cholesterol 19.4 5 - 40 mg/dL 11/13/2022 9:58 AM EST [facility] Cholesterol/HDL ratio 3.5(H) 0.0 - 3.2 11/13/2022 9:58 AM [facility] LDl/HDL Ratio 2 0 - 4 11/13/2022 9:58 AM [facility] LDL Cholesterol, Calculated 98 0 - 99 mg/dL 11/13/2022 9:58 AM [facility] RISK COMP 3 11/13/2022 9:58 AM [facility] Blood Venipuncture / Unknown 11/13/2022 7:08 AM EST 11/13/2022 7:14 AM EST us Talia Rhodes PA-C LAB BLOOD ORDERABLES Fin al Result [facility] [address] [phone] from Last 3 Months or Most Recently Relevant to Health Maintenance Insurance [facility] Advance Directives For more information, please contact: [phone] Documents on File Type Date Recorded Patient Automation Qa Lead Expl anation Advance Directives and Livin g Will 11/13/2022 6:33 AM * Full Code (Latest Code Status on File) Date Activated Date Inactivated Comments 11/13/2022 5:57 AM 11/14/2022 5:18 AM Care Teams Naval Designer Relationship Specialty Start Date End Date Shira Canchola, SHELLIE [address] [place] [address] PCP - General Physician Lineman 11/13/22
[2025-07-17 01:43] VITALS: BP 154/75; PULSE 75; RESP 16; TEMP 36.6; O2SAT 95; BMI 38.2
[2025-07-17 01:55] LABS: Hematocrit 38.7 % (37.0-47.0); Hemoglobin 13.2 g/dL (12.2-16.2); Immature Granulocytes % 0.3 %; Mean Corpuscular HGB Conc 34.1 g/dL (31.8-35.4); Mean Corpuscular Hemoglobin 29.6 pg (27.0-31.2); Mean Corpuscular Volume 86.8 fl (81-99); Nucleated Red Blood Cells % 0 %; Platelet Count 272 K/mm3 (142-424); Red Blood Count 4.46 M/mm3 (4.20-5.40); Red Cell Distribution Width-SD 40.8 fL; White Blood Count 8.7 K/mm3 (4.8-10.8)
[2025-07-17 02:07] LABS: Albumin Level 3.9 g/dl (3.5-5.0); Chloride 107 mmol/L (98-107); Sodium 139 mmol/L (136-145)
[2025-07-17 02:08] LABS: Potassium 4.3 mmoL/L (3.5-5.1)
[2025-07-17 02:10] LABS: Alanine Aminotransferase 19 U/L (12-78); Albumin/Globulin Ratio 1.3 (1.1-1.8); Alkaline Phosphatase 69 U/L (38-126); Anion Gap 10.3 mEq/L (5-15); Aspartate Amino Transferase 24 U/L (14-36); Bilirubin,Total 0.2 mg/dl (0.2-1.3); Blood Urea Nitrogen 17 mg/dl (7-17); Carbon Dioxide 26 mmol/L (22.0-30.0); Creatinine Clearance Estimated 187 mL/min (50-200); Creatinine,Serum 0.70 mg/dl (0.52-1.04); Estimated Glomerular Filt Rate 94 ml/min (>60); GFR (African American) 114 ML/MIN (>60); Globulin 2.9 g/dL (1.3-3.2); Total Protein,Serum 6.8 g/dl (6.3-8.2)
[2025-07-17 02:11] LABS: Calcium 9.7 mg/dl (8.4-10.2); Glucose 113 mg/dl (74-100)
[2025-07-17 02:45] VITALS: BP 109/69; PULSE 62; O2SAT 100
--- NOTE | 2025-07-17 02:51 | US_ITS ---
PROCEDURE INFORMATION: Exam: US , Transvaginal Exam date and time: 07/17/2025 3:17 AM Age: 35 years old Clinical indication: Lmp or gestational age (in weeks): 05/29/25; Other: Vaginal bleeding; ; Additional info: Vag bleeding, pelvic pain, preg unknown location TECHNIQUE: Imaging protocol: Real-time transvaginal obstetrical ultrasound of the maternal pelvis with image documentation. Transvaginal imaging was used for better evaluation of the fetus, adnexa, and/or cervix. COMPARISON: No relevant prior studies available. FINDINGS: Gestation: Single viable intrauterine gestation. pole has a crown-rump length of 4.1 mm for 6 weeks and 1 day. Yolk sac measures 4 mm. heart rate: heart rate of 113 bpm was noted on the examination. Placenta: Anechoic areas seen adjacent to the sac may represent a small subchorionic hemorrhage. MATERNAL: Right ovary/adnexa: The right ovary measures 3.0 x 3.6 x 2.3 cm. Right ovarian corpus luteum noted. Small amount of fluid is seen adjacent to the right ovary. Left ovary/adnexa: The left ovary measures 1.4 x 2.1 x 2.1 cm. IMPRESSION: 1. Viable early intrauterine gestation, estimated gestational age 6 weeks and 1 day. Questionable small subchorionic hemorrhage. 2. Right ovarian corpus luteum with a small amount of adjacent fluid.
[2025-07-17 04:02] VITALS: BP 118/76; PULSE 78; RESP 16; TEMP 36.6; O2SAT 99
== END 2025-07-17 04:07 | disposition home or self-care (01) ==
PROVIDERS: Emergency Provider Emergency Medicine; PCP Physician Assistant
DX: O20.9 Hemorrhage in early pregnancy, unspecified (principal); R10.32 Left lower quadrant pain; R10.2 Pelvic and perineal pain; Z3A.01 Less than 8 weeks gestation of pregnancy
CPT/HCPCS: 76817; 80053; 84702; 85025; 99283; 99284

== ENCOUNTER 2025-07-24 12:43 | Outpatient (CLI) | payer MEDICAID, SELFPAY ==
--- OUTSIDE RECORDS SUMMARY | 2025-07-24 12:49 | XMS_ITS | Referral Summary ---
Author Organization [employer] ([place], [place], [place], [place]) Address [address] [place] [address] Care Team Providers Care Pharmacy Delivery Driver Name Role Phone Shira Canchola PA-C Primary Care Provider [phone] Allergies No known active allergies Medications ergocalciferol [...] Date Raymond rded Speak language other than Vietnamese at home Not on file 11/28/2023 Want help with school or training Not on file 11/28/2023 Substance Use Answer Date Recorded Used prescription meds for non-medical reasons N ot on file 11/28/2023 Used illegal drugs past 12 months Not on file 11/28/2023 Comments Unknown Sex and Gender Information Value Date Recorded Sex Assigned at Not on file 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 Gender Identity Not on file Sexual Orientation [...] 0 - 249 mg/dL 11/13/2022 9:58 AM [facility] Cholesterol 164 0 - 199 mg/dL 11/13/2022 9:58 AM [facility] Comment: 200 to 239 mg/dL = Moderate (borderline) >239 mg/dL = High HDL Cholesterol 47 >=40 mg/dL 11/13/2022 9:58 AM [facility] Comment: >=60 mg/dL = Desirable <40 mg/dL = Increased Risk All other components are listed individually or are calculations VLDL Cholesterol 19.4 5 - 40 mg/dL 11/13/2022 9:58 AM [facility] Cholesterol/HDL ratio 3.5(H) 0.0 - 3.2 11/13/2022 9:58 AM [facility] LDl/HDL Ratio 2 0 - 4 11/13/2022 9:58 AM [facility] LDL Cholesterol, Calculated 98 0 - 99 mg/dL 11/13/2022 9:58 AM EST [facility] RISK COMP 3 11/13/2022 9:58 AM EST [facility] Blood Venipuncture / Unknown 11/13/2022 7:08 AM EST 11/13/2022 7:14 AM EST us Talia Rhodes PA-C LAB BLOOD ORDERABLES Fin al Result [facility] [address] [facility] [address] [phone] from Last 3 Months or Most Recently Relevant to Health Maintenance Insurance [facility] Advance Directives For more information, please contact: [phone] Documents on File Type Date Recorded Patient Land Development Manager Expl anation Advance Directives and Fransisco g Will 11/13/2022 6:33 AM * Full Code (Latest Code Status on File) Date Activated Date Inactivated Comments 11/13/2022 5:57 AM 11/14/2022 5:18 AM Care Teams Pharmacy Delivery Driver Relationship Specialty Start Date End Date Shira Canchola PA-C [address] [place] [address] PCP - General Physician Hadoop Engineer 11/13/22
--- OUTSIDE RECORDS SUMMARY | 2025-07-24 12:49 | XMS_ITS | Clinical Summary ---
Author Organization [employer] ([place], [place], [place], [place]) Address [address] [place] [address] Care Team Providers Care Biotech Production Specialist Name Role Phone Shira Canchola PA-C Primary Care Provider [phone] Allergies No known active allergies Medications ergocalciferol [...] Date Raymond rded Speak language other than Luxembourgish at home Not on file 11/28/2023 Want help with school or training Not on file 11/28/2023 Substance Use Answer Date Recorded Used prescription meds for non-medical reasons N ot on file 11/28/2023 Used illegal drugs past 12 months Not on file 11/28/2023 Comments Unknown Sex and Gender Information Value Date Recorded Sex Assigned at Not on file 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 Gender Identity Not on file Sexual Orientation [...] - 249 mg/dL 11/13/2022 9:58 AM EST [facility] Cholesterol 164 0 - 199 mg/dL 11/13/2022 9:58 AM EST [facility] Comment: 200 to 239 mg/dL = Moderate (borderline) >239 mg/dL = High HDL Cholesterol 47 >=40 mg/dL 11/13/2022 9:58 AM EST [facility] Comment: >=60 mg/dL = Desirable <40 mg/dL = Increased Risk All other components are listed individually or are calculations VLDL Cholesterol 19.4 5 - 40 mg/dL 11/13/2022 9:58 AM EST [facility] Cholesterol/HDL ratio 3.5(H) 0.0 - 3.2 11/13/2022 9:58 AM [facility] LDl/HDL Ratio 2 0 - 4 11/13/2022 9:58 AM [facility] LDL Cholesterol, Calculated 98 0 - 99 mg/dL 11/13/2022 9:58 AM [facility] RISK COMP 3 11/13/2022 9:58 AM [facility] Blood Venipuncture / Unknown 11/13/2022 7:08 AM EST 11/13/2022 7:14 AM EST us Talia Rhodes PA-C LAB BLOOD ORDERABLES Fin al Result [facility] [address] [phone] from Last 3 Months or Most Recently Relevant to Health Maintenance Insurance [facility] Advance Directives For more information, please contact: [phone] Documents on File Type Date Recorded Patient Chief Compliance Officer Expl anation Advance Directives and Livin g Will 11/13/2022 6:33 AM * Full Code (Latest Code Status on File) Date Activated Date Inactivated Comments 11/13/2022 5:57 AM 11/14/2022 5:18 AM Care Teams Biotech Production Specialist Relationship Specialty Start Date End Date Shira Canchola, SHELLIE [address] [place] [address] PCP - General Physician Chief Knowledge Officer 11/13/22
--- OUTSIDE RECORDS SUMMARY | 2025-07-24 12:49 | XMS_ITS | Clinical Summary ---
Author Organization [facility] Address [address] [place] [address] Care Team Providers Care Fern Cutter Name Role Phone Shira Canchola Primary Care Provider [phone] Allergies No known active allergies Medications * [...] due to her children not having a rn case manager. Patient sister is here with her today [...] plans to have very surgical intervention at [facility]. Hyperlipidemia Vitamin D deficiency Heartburn Anxiety Depression Diabetes Overview (08/14/2020): newly dx, on Metformin, never on insulin Current use of aspirin Overview (08/14/2020): given DM dx Iron deficiency Overview (08/14/2020): on daily PO supplements H. pylori infection Overview (08/23/2020): UBT (+) - PrevPak RX 08/23/20 Family History Medical History Relation Name Comments [...] Average Number of Drinks Not on file Frequency of Binge Drinking Not on file [...] 010 03/2023, 08/14/2020 COVID-19 Vaccine ( season) 2025, [...] (ABNORMAL) Hemoglobin A1c (08/14/2020 10:44 AM EDT) Pathologist [facility] Hemoglobin A1C 6.60(H) 4.80 - 5.60 % [facility] Comment: Hemoglobin A1C Ranges: Increased Risk for Diabetes 5.7% to 6.4% Diabetes >= 6.5% Diabetic Goal < 7.0% Blood 08/14/2020 10:4 4 AM EDT 08/14/2020 Narrative [facility] - 08/15/2020 6:07 PM EDT Performed at: [address] [place] [id number] Supervisor Safety Deposit: Michael Diane MD, Phone: [phone] Patient Fasting: N Nadia YEE LAB BLOOD ORDERABLES Final Result Performing Organization Address City/[facility]/ZIP Co de Phone Number [facility] [address] [place] [address], [facility] [address] [place] [address], [place] [phone] * Lipid Panel (08/14/2020 10:44 AM EDT) Pathologist [facility] Total Cholesterol 118 0 - 200 mg/dL [...] - 08/15/2020 6:07 PM EDT Performed at: [address] [place] [id number] Supervisor Safety Deposit: Michael Diane MD, Phone: [phone] Patient Fasting: N Nadia YEE LAB BLOOD ORDERABLES Final Result Performing Organization Address City/[facility] Co de Phone Number [facility] [address] [place] [address], [place] [phone] [facility] [address] [place] [address], from Last 3 Months or Most Recently Relevant to Health Maintenance Insurance [employer] Care Teams Fern Cutter Relationship Specialty Start Date End Date Shira Canchola PA PCP - General Physician Corn Popper 01/20/20
--- NOTE | 2025-07-24 13:00 | US_ITS ---
PROCEDURE: US OB <= 14 WEEKS FETUS CLINICAL INDICATION: Bleeding in early COMPARISON: US US OB TRANSVAGINAL from 07/17/2025 FINDINGS: Transvaginal sonographic images of the pelvis were obtained. From her last menstrual period she is 8weeks 0 days. An intrauterine gestational sac is present with a pole with a crown-rump length of 1.27cm This correlates to a gestational age of 7weeks 4days. heart tones are present with an FHR of 134bpm. Yolk sac is noted. The yolk sac measures 5.0mm. There is a collection of fluid overlying the gestational sac that is likely a subchorionic hemorrhage. The right ovary is seen and appears normal. A 2.4 cm corpus luteum is seen within the right ovary. The left ovary is seen and appears normal. There is trace fluid in the cul-de-sac. IMPRESSION: 1. Viable embryo within the uterine cavity. Heart rate activity is seen. 2. The embryo measures 7 weeks 4 days and her JACOBY will remain 03/05/2026. 3. There is a collection of fluid adjacent to the gestational sac which is likely a subchorionic hemorrhage. 4. Both ovaries are seen and appear normal. There is a corpus luteum seen in the right ovary in this has diminished in size since her last ultrasound 1 week ago. 5. There is trace fluid in the cul-de-sac. Dictated by: Karl Hernandez MD 07/24/2025 18:33 Karl Hernandez MD in OV 07/24/2025 18:33
== END 2025-07-24 23:59 | disposition home or self-care (01) ==
LOC: RAD 12:44
PROVIDERS: PCP Physician Assistant; Visit Provider Obstetrics & Gynecology
DX: O28.3 Abnormal ultrasonic finding on antenatal screening of mother (principal); O34.81 Maternal care for other abnormalities of pelvic organs, first trimester; O20.9 Hemorrhage in early pregnancy, unspecified; N83.11 Corpus luteum cyst of right ovary; Z3A.01 Less than 8 weeks gestation of pregnancy
CPT/HCPCS: 76801

== ENCOUNTER 2025-08-01 16:21 | Outpatient (CLI) | payer MEDICAID, SELFPAY ==
--- OUTSIDE RECORDS SUMMARY | 2025-08-01 16:23 | XMS_ITS | Clinical Summary ---
Author Organization [facility] Address [address] [place] [address] Care Team Providers Care Licensed Prosthetist Name Role Phone Shira Canchola Primary Care Provider [phone] Allergies No known active allergies Medications * [...] due to her children not having a roguer. Patient sister is here with her today [...] plans to have very surgical intervention at [facility]. Hyperlipidemia Vitamin D deficiency Heartburn [...] A1C 02/12/2021 08/14/2020 LIPID PANEL 11/13/2023 11/13/2022, 01/0 03/2023, 08/14/2020 INFLUENZA VACCINE 06/09/2025 08/10/2018, 10/01/2010 Procedures Procedure Name Priority Date/Time [...] - 08/15/2020 6:07 PM EDT Performed at: [address] [place] [address] [address] [place], [place] [id number] Relay Checker: Michael Diane MD, Phone: [phone] Patient Fasting: N Nadia YEE LAB BLOOD ORDERABLES Final Result Performing Organization Address City/[facility]/ZIP Co de Phone Number [facility] [address] [place] [address], [facility] [address] [place] [address], * Lipid Panel (08/14/2020 10:44 AM EDT) [facility] Total Cholesterol 118 0 - 200 mg/dL [...] - 08/15/2020 6:07 PM EDT Performed at: [address] [place] [address] [address] [place], [place] [id number] Relay Checker: Michael Diane MD, Phone: [phone] Patient Fasting: N Nadia YEE LAB BLOOD ORDERABLES Final Result Performing Organization Address [facility]/ZIP Co de Phone Number [facility] [address] [place] [address], [facility] [address] [place] [address], from Last 3 Months or Most Recently Relevant to Health Maintenance Insurance [employer] Care Teams Licensed Prosthetist Relationship Specialty Start Date End Date Shira Canchola PA PCP - General Physician Neurology Specialist 01/20/20
[2025-08-01 17:34] LABS: Hematocrit 38.3 % (37.0-47.0); Hemoglobin 12.3 g/dL (12.2-16.2); Immature Granulocytes % 0.6 %; Mean Corpuscular HGB Conc 32.1 g/dL (31.8-35.4); Mean Corpuscular Hemoglobin 28.9 pg (27.0-31.2); Mean Corpuscular Volume 89.9 fl (81-99); Nucleated Red Blood Cells % 0 %; Platelet Count 256 K/mm3 (142-424); Red Blood Count 4.26 M/mm3 (4.20-5.40); Red Cell Distribution Width-SD 45.0 fL; White Blood Count 9.1 K/mm3 (4.8-10.8)
[2025-08-01 19:21] LABS: Hepatitis C Ab Qual. W/ RFX NEGATIVE (Negative)
[2025-08-01 22:48] LABS: Hemoglobin A1C 4.9 % (4.0-6.0)
[2025-08-02 14:49] LABS: RPR W/RFX Titers Nonreactive (Nonreactive)
[2025-08-03 07:10] LABS: Rubella Antibodies, IgG <0.90 index (Immune >0.99)
[2025-08-03 08:13] LABS: Hepatitis B Surface Antigen Negative (Negative)
== END 2025-08-01 23:59 | disposition home or self-care (01) ==
PROVIDERS: PCP Physician Assistant; Visit Provider Obstetrics & Gynecology
DX: O24.111 Pre-existing type 2 diabetes mellitus, in pregnancy, first trimester (principal); Z3A.00 Weeks of gestation of pregnancy not specified
CPT/HCPCS: 36415; 83036; 85025; 86592; 86762; 86803; 86850; 87086; 87340; 87389

== ENCOUNTER 2025-10-19 13:33 | Outpatient (CLI) | payer MEDICAID, SELFPAY ==
--- NOTE | 2025-10-19 13:30 | US_ITS ---
PROCEDURE: US OB /MATERNAL DETAIL CLINICAL INDICATION: 20 week anatomy COMPARISON: US US OB TRANSVAGINAL from 07/17/2025 US US OB <= 14 WEEKS FETUS from 07/24/2025 FINDINGS: Transabdominal sonographic images of the pelvis were obtained. From her established due date she is 20 weeks 0 day. Single viable intrauterine gestation. Breech position. Placenta: Posteriorplacenta grade 1. There is an average amount of fluid. The cervix appears satisfactory. Closed and measuring 3.31 cm in in length. Complete survey performed and was unremarkable on the submitted images as in PACS. No discrete anomalies identified on survey imaging by technologist. Active fetus. Three-vessel cord with satisfactory umbilical cord insertion. 4- chamber heart noted. Situs, aortic arch, LVOT, RVOT, three-vessel view appear normal. Survey of brain & ventricles Unremarkable. Cerebellum, thalamus, choroid plexus, cisterna magna appear normal. Face and neck survey unremarkable. Profile, nasion, lips and nose appeared normal. Diaphragm and chest views unremarkable. Abdomen: Both kidneys noted and unremarkable. Stomach and bladder noted and satisfactory. Spine: Survey of the spine satisfactory with no anomalies identified nor imaged. Cervical, thoracic, lower spine appear normal. Both arms and legs noted. Amniotic Fluid: Adequate. MVP 4.36 cm Measurements: Average ultrasound age 20weeks 1day. Estimated due date by ultrasound age 0403/07/2026. Estimated weight 353g BPD = 19weeks 5days HC = 19weeks 4days AC = 21weeks 0 days FL = 20weeks 2days Growth Percentile= 70 Heart Rate = 139bpm Cerebellum = 20weeks Humerus = 20weeks 6days HC/AC is 1.07 FL/BPD is 0.72 FL/AC is 0.21 IMPRESSION: 1. Viable fetus in the breech presentation with a posterior placenta grade 1. 2. Somewhat difficult exam secondary to maternal body habitus and position. 3. Suggest the patient return in 2-3 weeks for complete spinal, heart and face views. 4. The rest of the anatomical scan appears normal. 5. biometry is consistent with the dates. Dictated by: Karl Hernandez MD 10/19/2025 15:35 Karl Hernandez MD in [place] 10/19/2025 15:35
== END 2025-10-19 23:59 | disposition home or self-care (01) ==
LOC: RAD 13:33
PROVIDERS: PCP Physician Assistant; Visit Provider Obstetrics & Gynecology
DX: O32.1XX0 Maternal care for breech presentation, not applicable or unspecified (principal); O10.912 Unspecified pre-existing hypertension complicating pregnancy, second trimester; O99.891 Other specified diseases and conditions complicating pregnancy; O24.419 Gestational diabetes mellitus in pregnancy, unspecified control; O99.212 Obesity complicating pregnancy, second trimester; O09.522 Supervision of elderly multigravida, second trimester; E66.9 Obesity, unspecified; Z28.39 Other underimmunization status; Z3A.20 20 weeks gestation of pregnancy
CPT/HCPCS: 76811

== ENCOUNTER 2025-11-06 14:59 | Outpatient (CLI) | payer MEDICAID, SELFPAY ==
--- OUTSIDE RECORDS SUMMARY | 2025-09-26 14:30 | XMS_ITS | Encounter Summary ---
Author Organization Healthcare Address [address] [place] [address] Care Team Providers Care Pluck Trimmer Name Role Phone Unavailable Primary Care Provider Unavailabl e Encounter Details Date Type Department Care Team (Late st Contact Info) Description 09/26/2025 2:30 PM EST Initial [facility] [address], [address] [place] [address] Debra Olguni MD [address] [place] [address] [place]: [id number] Social History Tobacco Use Types Packs/Day Years Used Date Smoking Tobacco: Never Smokeless Tobacco: Never Alcohol Use Standard Drinks/Week Comments Never 0 (1 standard drink = 0.6 oz pur e alcohol) PHQ-2 Answer Date Recorded Patient Health Questionnaire-2 Score 0 09/26/2025 PHQ-9 Answer Date Recorded Patient Health Questionnaire-9 Score 0 09/26/2025 Humiliation, Afraid, Rape, and Kick questionnair e Answer Date Recorded Within the last year, have y ou been afraid of your partner or ex-partner? No 09/26/2025 Within the last year, have y ou been humiliated or emotionally abused in other ways by your partner or ex-partner? No Within the last year, have y ou been kicked, hit, slapped, or otherwise physically hurt by your partner or ex-partner? No 09/26/2025 Within the last year, have y ou been raped or forced to have any kind of sexual activity by your partner or ex-partner? No 09/26/2025 Social Connection and Isolation Panel Answer Date Recorded In a typical week, how many times do you talk on the phone with family, friends, or neighbors? More than three times a week 09/26/2025 How often do you get togethe r with friends or relatives? More than three times a week 09/26/2025 How often do you attend chur ch or congregational services? Never 09/26/2025 Do you belong to any clubs o r organizations such as muslim groups, unions, fraternal or athletic groups, or school groups? No 09/26/2025 How often do you attend meet ings of the clubs or organizations you belong to? Never 09/26/2025 Are you , , di vorced, , never , or living with a partner? Living with partner 09/26/2025 AUDIT-C Answer Date Recorded Q1: How often do you have a drink containing alcohol? Never 09/26/2025 Q2: How many drinks containi ng alcohol do you have on a typical day when you are drinking? Patient does not drink Q3: How often do you have si x or more drinks on one occasion? Never 09/26/2025 Overall Financial Resource Strain (CARDIA) Answe r Date Recorded How hard is it for you to pa y for the very basics like food, housing, medical care, and heating? Not hard at all 09/26/2025 [facility] - Occupational Stress Questionnaire Answer Date Recorded Do you feel stress - tense, restless, nervous, or anxious, or unable to sleep at night because your mind is troubled all the time - these days? Not at all 09/26/2025 Exercise Vital Sign Answer Date Recorde d On average, how many days pe r week do you engage in moderate to strenuous exercise (like a brisk walk)? 0 days 09/26/2025 On average, how many minutes do you engage in exercise at this level? 0 min 09/26/2025 Hunger Vital Sign Answer Date Recorded Within the past 12 months, y ou worried that your food would run out before you got the money to buy more. Never true 09/26/20 25 Within the past 12 months, t he food you bought just didn't last and you didn't have money to get more. Never true 09/26/2025 PRAPARE - Transportation Answer Date Re corded In the past 12 months, has l ack of transportation kept you from medical appointments or from getting medications? No 09/09 In the past 12 months, has l ack of transportation kept you from meetings, work, or from getting things needed for daily living? No 09/26/2025 Housing Stability Vital Sign Answer Bebo e Recorded In the last 12 months, was t here a time when you were not able to pay the mortgage or rent on time? No 09/26/2025 In the past 12 months, how m any times have you moved where you were living? 0 09/26/2025 At any time in the past 12 m [facility], were you homeless or living in a long-term (including now)? No 09/26/2025 [facility] Utilities Answer Date Recorded In the past 12 months has th e electric, gas, oil, or water company threatened to shut off services in your home? No 09/26/2025 [place] Depression Scale Answer Date Recorded [place] Depression Scale Total 0 09/26/2025 The thought of harming myself has occurred to me . Never 09/26/2025 Education Answer Date Recorded What is the highest level of school you have completed or the highest degree you have received? High school graduate 09/26/2025 Estimated Date of Delivery Comme nts Yes 03/08/2026 Based on Patient Reported, Reports JACOBY 03/08/2026 Sex and Gender Information Value Date Recorded Sex Assigned at Not on file Legal Sex Female 7:34 PM EDT Gender Identity Not on file Sexual Orientation Not on file Occupation Industry Job Start Date Job End Date [employer] Not on file Not on file Not on file documented as of this encounter Last Filed Vital Signs Vital Sign Reading Time Taken Comments Blood Pressure 119/74 09/26/2025 3:00 PM EST Pulse 78 09/26/2025 3:00 PM EST Temperature 36.9 C (98.5 F) 09/26/2025 3:00 PM EST Respiratory Rate 20 09/26/2025 3:00 PM EST Oxygen Saturation 97% 09/26/2025 3:00 PM EST Inhaled Oxygen Concentration - - Weight 120 kg (263 lb 7.2 oz) 09/26/2025 3:00 PM EST Height 167.6 cm (5' 6 ) 09/26/2025 3:00 PM EST Body Mass Index 42.52 09/26/2025 3:00 PM EST documented in this encounter Functional Status * BP Answer Date of Assessment Author 119/74 09/26/2025 3:00 PM EST Moisés Strickland RN * Temp Answer Date of Assessment Author 98.5 09/26/2025 3:00 PM Moisés Connor RN * Temp src Answer Date of Assessment Author Tympanic 09/26/2025 3:00 PM Moisés Connor RN * Pulse Answer Date of Assessment Author 78 09/26/2025 3:00 PM Moisés Connor RN * Resp Answer Date of Assessment Author 20 09/26/2025 3:00 PM Moisés Connor RN * SpO2 Answer Date of Assessment Author 97 09/26/2025 3:00 PM Moisés Connor RN * Height Answer Date of Assessment Author 66 09/26/2025 3:00 PM Moisés Connor RN * Weight Answer Date of Assessment Author 4215.2 09/26/2025 3:00 PM Moisés Connor RN * BMI (Calculated) Answer Date of Assessment Author 42.6 09/26/2025 3:00 PM Moisés Connor RN * Percent Excess Weight Loss Answer Date of Assessment Author 0 09/26/2025 3:00 PM Moisés Connor RN * Total Weight Change Percent Answer Date of Assessment Author 2222 09/26/2025 3:00 PM Moisés Connor RN * Weight Change Since Preop Answer Date of Assessment Author 119.47 09/26/2025 3:00 PM Moisés Connor RN * Initial Excess Weight Answer Date of Assessment Author -58.97 09/26/2025 3:00 PM Moisés Connor RN * IBW in lbs (Bariatric) Answer Date of Assessment Author 130 09/26/2025 3:00 PM Moisés Connor RN * Weight Change Since Last Visit Answer Date of Assessment Author 119.47 09/26/2025 3:00 PM Moisés Connor RN * IBW in kg (Bariatric) Answer Date of Assessment Author 58.97 09/26/2025 3:00 PM Moisés Connor RN * Percent of IBW Answer Date of Assessment Author 7,148.04 09/26/2025 3:00 PM Moisés Connor RN * EBW (kg) Answer Date of Assessment Author 4,213.53 09/26/2025 3:00 PM Moisés Connor RN * EBW (lbs) Answer Date of Assessment Author 4,207.08 09/26/2025 3:00 PM Moisés Connor RN * Weight Change 24 hrs Answer Date of Assessment Author 119.5 09/26/2025 3:00 PM Moisés Connor RN * Depression Screening Question Answer Date of Assessment Author Will the patient answer the depression risk questions? Yes 09/26/2025 3:20 PM Miguel Connor RN * BSA (Calculated - sq m) Answer Date of Assessment Author 2.36 09/26/2025 3:00 PM Moisés Connor RN * BMI (Calculated) Answer Date of Assessment Author 42.54 09/26/2025 3:00 PM Moisés Connor RN * IBW/kg (Calculated) Male Answer Date of Assessment Author 63.8 09/26/2025 3:00 PM Moisés Connor RN * IBW/kg (Calculated) Female Answer Date of Assessment Author 59.3 09/26/2025 3:00 PM Moisés Connor RN * Restart Vitals Timer Answer Date of Assessment Author Yes 09/26/2025 3:00 PM Moisés Connor RN * IBW/kg (Calculated) Answer Date of Assessment Author 59.3 09/26/2025 3:00 PM Moisés Connor RN * Over the past 2 weeks, how often have you been bothered by any of the following problems? Question Answer Date of Assessment Author Little interest or pleasure in doing things Not at all 09/26/2025 3:20 PM Veronica Connor RN Feeling down, depressed, or hopeless Not at all 09/26/2025 3:20 PM Veronica Connor RN Patient Health Questionnaire-2 Score 0 09/26/2025 3:20 PM Adonay Connor RN * Over the past 2 weeks, how often have you been bothered by any of the following problems? Question Answer Date of Assessment Author Trouble falling or staying asleep, or sleeping too much Not at all 09/26/2025 3:20 PM Veronica Connor RN Feeling tired or having little energy Not at all 09/26/2025 3:20 PM Veronica Connor RN Poor appetite or overeating Not at all 09/26/2025 3: 20 PM Veronica Connor RN Feeling bad about yourself - or that you are a failure or have let yourself or your family down Not at all 09/26/2025 3:20 PM Veronica Connor RN Trouble concentrating on things, such as reading the newspaper or watching television Not at all 09/26/2025 3:20 PM Veronica Connor RN Moving or speaking so slowly that other people could have noticed. Or the opposite - being so fidgety or restless that you have been moving around a lot more than usual Not at all 09/26/2025 3:20 PM Veronica Connor RN Thoughts that you would be better off or hurting yourself in some way Not at all 09/26/2025 3:20 PM Veronica Connor RN Patient Health Questionnaire-9 Score 0 09/26/2025 3:20 PM Adonay Connor RN * AUDIT-C Score Answer Date of Assessment Author 0 09/26/2025 3:12 PM Moisés Connor RN * [place] Depression Scale: In the Past 7 Days Question Answer Date of Assessment Author I have been able to laugh an d see the funny side of things. 0 09/26/2025 3:22 PM Veronica Connor RN I have looked forward with enjoyment to things. 0 09/26/2025 3:22 PM Veronica Connor RN I have blamed myself unnecessarily when things went wrong. 0 09/26/2025 3:22 PM Veronica Connor RN I have been anxious or worri ed for no good reason. 0 09/26/2025 3:22 PM Veronica Connor RN I have felt scared or panick y for no good reason. 0 09/26/2025 3:22 PM Veronica Connor RN Things have been getting on top of me. 0 09/26/2025 3:22 PM Veronica Connor RN I have been so unhappy that I have had difficulty sleeping. 0 09/26/2025 3:22 PM Veronica Connor RN I have felt sad or miserable. 0 09/26/2025 3:22 PM Veronica Connor RN I have been so unhappy that I have been crying. 0 09/26/2025 3:22 PM Veronica Connor RN The thought of harming mysel f has occurred to me. 0 09/26/2025 3:22 PM Veronica Connor RN [place] Depressi on Scale Total 0 09/26/2025 3:22 PM Veronica Connor RN * Physical Activity Question Answer Date of Assessment Author On average, how many days pe r week do you engage in moderate to strenuous exercise (like a brisk walk)? 0 days 09/26/2025 3:21 PM Veronica Connor RN On average, how many minutes do you engage in exercise at this level? 0 min 09/26/2025 3:21 PM Veronica Connor RN * Alcohol Use Question Answer Date of Assessment Author Q1: How often do you have a drink containing alcohol? Never 09/26/2025 3:12 PM Veronica Connor RN Q2: How many drinks containing alcohol do you have on a typical day when you are drinking? Patient does not drink 09/26/2025 3:12 PM Veronica Connor RN Q3: How often do you have six or more drinks on one occasion? Never 09/26/2025 3:12 PM Veronica Connor RN * Weight in (lb) to have BMI = 25 Answer Date of Assessment Author 154.6 09/26/2025 3:00 PM Moisés Connor RN * BMI (Calculated) Answer Date of Assessment Author 42.6 09/26/2025 3:00 PM Moisés Connor RN * Percent Excess Weight Loss Answer Date of Assessment Author 0 09/26/2025 3:00 PM Moisés Connor RN * Weight Change Since Preop Answer Date of Assessment Author 119.5 09/26/2025 3:00 PM Moisés Connor RN * Initial Excess Weight Answer Date of Assessment Author -58.97 09/26/2025 3:00 PM Moisés Connor RN * IBW in kg (Bariatric) Answer Date of Assessment Author 58.97 09/26/2025 3:00 PM Moisés Connor RN * IBW in lb (Bariatric) Answer Date of Assessment Author 130 09/26/2025 3:00 PM Moisés Connor RN * Weight Change Since Last Visit Answer Date of Assessment Author 119.5 09/26/2025 3:00 PM Moisés Connor RN * Percent of IBW Answer Date of Assessment Author 202.65 09/26/2025 3:00 PM Moisés Connor RN * EBW (kg) Answer Date of Assessment Author 60.5 09/26/2025 3:00 PM Moisés Connor RN * EBW (lb) Answer Date of Assessment Author 133.45 09/26/2025 3:00 PM Moisés Connor RN * Difference in Weight Since Last Visit Answer Date of Assessment Author 119.5 09/26/2025 3:00 PM Moisés Connor RN * Temp (in Celsius) for [place] Answer Date of Assessment Author 36.9 09/26/2025 3:00 PM Moisés Connor RN * IBW/kg (Calculated) Answer Date of Assessment Author 59.3 09/26/2025 3:00 PM Moisés Connor RN * Adult Low Range Vt 6mL/kg Answer Date of Assessment Author 355.8 09/26/2025 3:00 PM Moisés Connor RN * Adult Moderate Range Vt 8mL/kg Answer Date of Assessment Author 474.4 09/26/2025 3:00 PM Moisés Connor RN * Adult High Range Vt 10mL/kg Answer Date of Assessment Author 593 09/26/2025 3:00 PM Moisés Connor RN * Pain Score Answer Date of Assessment Author 0 09/26/2025 3:00 PM Moisés Connor RN * Vitals Timer Question Answer Date of Assessment Author Restart Vitals Timer Yes 09/26/2025 3:00 PM Veronica Lyle RN * Pain Screening/Additional Assessments Question Answer Date of Assessment Author Pain Screening/Assessments Pain Screening 09/26/2025 3:00 PM Adonay Connor RN * Pain Screening Answer Date of Assessment Author 0-10 09/26/2025 3:00 PM Moisés Connor RN * BP Answer Date of Assessment Author 119/74 09/26/2025 3:00 PM Moisés Connor RN * Temp Answer Date of Assessment Author 98.5 09/26/2025 3:00 PM Moisés Connor RN * Temp src Answer Date of Assessment Author Tympanic 09/26/2025 3:00 PM Moisés Connor RN * Pulse Answer Date of Assessment Author 78 09/26/2025 3:00 PM Moisés Connor RN * Resp Answer Date of Assessment Author 20 09/26/2025 3:00 PM Moisés Connor RN * SpO2 Answer Date of Assessment Author 97 09/26/2025 3:00 PM Moisés Connor RN * Height Answer Date of Assessment Author 66 09/26/2025 3:00 PM Moisés Connor RN * Weight Answer Date of Assessment Author 4215.2 09/26/2025 3:00 PM Moisés Connor RN * BSA (Calculated - sq m) Answer Date of Assessment Author 2.36 09/26/2025 3:00 PM Moisés Connor RN * BMI (Calculated) Answer Date of Assessment Author 42.54 09/26/2025 3:00 PM Moisés Connor RN * Restart Vitals Timer Answer Date of Assessment Author Yes 09/26/2025 3:00 PM Moisés Connor RN * Over the past 2 weeks, how often have you been bothered by any of the following problems? Question Answer Date of Assessment Author Little interest or pleasure in doing things Not at all 09/26/2025 3:20 PM Veronica Connor RN Feeling down, depressed, or hopeless Not at all 09/26/2025 3:20 PM Veronica Connor RN Patient Health Questionnaire-2 Score 0 09/26/2025 3:20 PM Adonay Connor RN * Over the past 2 weeks, how often have you been bothered by any of the following problems? Question Answer Date of Assessment Author Trouble falling or staying asleep, or sleeping too much Not at all 09/26/2025 3:20 PM Veronica Connor RN Feeling tired or having little energy Not at all 09/26/2025 3:20 PM Veronica Connor RN Poor appetite or overeating Not at all 09/26/2025 3: 20 PM Veronica Connor RN Feeling bad about yourself - or that you are a failure or have let yourself or your family down Not at all 09/26/2025 3:20 PM Veronica Connor RN Trouble concentrating on things, such as reading the newspaper or watching television Not at all 09/26/2025 3:20 PM Veronica Connor RN Moving or speaking so slowly that other people could have noticed. Or the opposite - being so fidgety or restless that you have been moving around a lot more than usual Not at all 09/26/2025 3:20 PM Veronica Connor RN Thoughts that you would be better off or hurting yourself in some way Not at all 09/26/2025 3:20 PM Veronica Connor RN Patient Health Questionnaire-9 Score 0 09/26/2025 3:20 PM Adonay Connor RN * Physical Activity Question Answer Date of Assessment Author On average, how many days pe r week do you engage in moderate to strenuous exercise (like a brisk walk)? 0 days 09/26/2025 3:21 PM Veronica Connor RN On average, how many minutes do you engage in exercise at this level? 0 min 09/26/2025 3:21 PM Veronica Connor RN * Weight in (lb) to have BMI = 25 Answer Date of Assessment Author 154.6 09/26/2025 3:00 PM Moisés Connor RN * Pain Score Answer Date of Assessment Author 0 09/26/2025 3:00 PM Moisés Connor RN * Learning Needs Screening Question Answer Date of Assessment Author Are there things (barriers) that make it harder for this patient to learn? No Barriers 09/26/2025 3:00 PM Frida Connor RN What is the best language to use for teaching this patient about his/her health? Bhutanese 09/26/2025 3:00 PM Veroinca Connor RN What format does this patient think is most helpful for learning? Listening 09/26/2025 3:00 PM Adonay Connor RN Primary Learner Patient 09/26/2025 3:00 PM Veronica Gong Ba, RN * Readiness to Learn Question Answer Date of Assessment Author Readiness Eager 09/26/2025 3:00 PM Veronica Aguilera RN documented as of this encounter Mental Status * BP Answer Entry Date Author 119/74 09/26/2025 3:00 PM Moisés Connor RN * Temp Answer Entry Date Author 98.5 09/26/2025 3:00 PM Moisés Connor RN * Temp src Answer Entry Date Author Tympanic 09/26/2025 3:00 PM Moisés Connor RN * Pulse Answer Entry Date Author 78 09/26/2025 3:00 PM Moisés Connor RN * Resp Answer Entry Date Author 20 09/26/2025 3:00 PM Moisés Connor RN * SpO2 Answer Entry Date Author 97 09/26/2025 3:00 PM Moisés Connor RN * Height Answer Entry Date Author 66 09/26/2025 3:00 PM Moisés Connor RN * Weight Answer Entry Date Author 4215.2 09/26/2025 3:00 PM Moisés Connor RN * BMI (Calculated) Answer Entry Date Author 42.6 09/26/2025 3:00 PM Moisés Connor RN * Percent Excess Weight Loss Answer Entry Date Author 0 09/26/2025 3:00 PM Moisés Connor RN * Total Weight Change Percent Answer Entry Date Author 22209/26/2025 3:00 PM Moisés Connor RN * Weight Change Since Preop Answer Entry Date Author 119.47 09/26/2025 3:00 PM Moisés Connor RN * Initial Excess Weight Answer Entry Date Author -58.97 09/26/2025 3:00 PM Moisés Connor RN * IBW in lbs (Bariatric) Answer Entry Date Author 130 09/26/2025 3:00 PM Moisés Connor RN * Weight Change Since Last Visit Answer Entry Date Author 119.47 09/26/2025 3:00 PM Moisés Connor RN * IBW in kg (Bariatric) Answer Entry Date Author 58.97 09/26/2025 3:00 PM Moisés Connor RN * Percent of IBW Answer Entry Date Author 7,148.04 09/26/2025 3:00 PM Moisés Connor RN * EBW (kg) Answer Entry Date Author 4,213.53 09/26/2025 3:00 PM Moisés Connor RN * EBW (lbs) Answer Entry Date Author 4,207.08 09/26/2025 3:00 PM Moisés Connor RN * Weight Change 24 hrs Answer Entry Date Author 119.5 09/26/2025 3:00 PM Moisés Connor RN * Depression Screening Question Answer Entry Date Author Will the patient answer the depression risk questions? Yes 09/26/2025 3:20 PM Miguel Connor RN * BSA (Calculated - sq m) Answer Entry Date Author 2.36 09/26/2025 3:00 PM Moisés Connor RN * BMI (Calculated) Answer Entry Date Author 42.54 09/26/2025 3:00 PM Moisés Connor RN * IBW/kg (Calculated) Male Answer Entry Date Author 63.8 09/26/2025 3:00 PM Moisés Connor RN * IBW/kg (Calculated) Female Answer Entry Date Author 59.3 09/26/2025 3:00 PM Moisés Connor RN * Restart Vitals Timer Answer Entry Date Author Yes 09/26/2025 3:00 PM Moisés Connor RN * IBW/kg (Calculated) Answer Entry Date Author 59.3 09/26/2025 3:00 PM Moisés Connor RN * Over the past 2 weeks, how often have you been bothered by any of the following problems? Question Answer Entry Date Author Little interest or pleasure in doing things Not at all 09/26/2025 3:20 PM Veronica Connor RN Feeling down, depressed, or hopeless Not at all 09/26/2025 3:20 PM Veronica Connor RN Patient Health Questionnaire-2 Score 0 09/26/2025 3:20 PM Adonay Connor RN * Over the past 2 weeks, how often have you been bothered by any of the following problems? Question Answer Entry Date Author Trouble falling or staying asleep, or sleeping too much Not at all 09/26/2025 3:20 PM Veronica Connor RN Feeling tired or having cuca le energy Not at all 09/26/2025 3:20 PM Veronica Connor RN Poor appetite or overeating Not at all 09/09 3:20 PM Veronica Connor RN Feeling bad about yourself - or that you are a failure or have let yourself or your family down Not at all 09/26/2025 3:20 PM Veronica Connor RN Trouble concentrating on things, such as reading the newspaper or watching television Not at all 09/26/2025 3:20 PM Veronica Connor RN Moving or speaking so slowly that other people could have noticed. Or the opposite - being so fidgety or restless that you have been moving around a lot more than usual Not at all 09/26/2025 3:20 PM Veronica Connor RN Thoughts that you would be better off or hurting yourself in some way Not at all 09/26/2025 3:20 PM Veronica Connor RN Patient Health Questionnaire -9 Score 0 09/26/2025 3:20 PM Veronica Connor RN * HARK Concern Calculation Answer Entry Date Author 1 09/26/2025 3:19 PM Moisés Connor RN * Alcohol Use Concern Calculation Answer Entry Date Author 1 09/26/2025 3:12 PM Moisés Connor RN * Food Insecurity Concern Calculation Answer Entry Date Author 1 09/26/2025 3:18 PM Moisés Connor RN * Transportation Needs Concern Calculation Answer Entry Date Author 1 09/26/2025 3:19 PM Moisés Connor RN * Housing Stability Concern Calculation Answer Entry Date Author 1 09/26/2025 3:19 PM Moisés Connor RN * Utilities Concern Calculation Answer Entry Date Author 1 09/26/2025 3:19 PM Moisés Connor RN * [facility] Mental Health Concern Calculation Answer Entry Date Author 3 09/26/2025 3:20 PM Moisés Connor RN * Skip to questions 9-10? Answer Entry Date Author 1 09/26/2025 3:12 PM Moisés Connor RN * [place] Depression Scale: In the Past 7 Days Question Answer Entry Date Author I have been able to laugh an d see the funny side of things. 0 09/26/2025 3:22 PM Veronica Connor RN I have looked forward with enjoyment to things. 0 09/26/2025 3:22 PM Veronica Connor RN I have blamed myself unnecessarily when things went wrong. 0 09/26/2025 3:22 PM Veronica Connor RN I have been anxious or worri ed for no good reason. 0 09/26/2025 3:22 PM Veronica Connor RN I have felt scared or panick y for no good reason. 0 09/26/2025 3:22 PM Veronica Connor RN Things have been getting on top of me. 0 09/26/2025 3:22 PM Veronica Connor RN I have been so unhappy that I have had difficulty sleeping. 0 09/26/2025 3:22 PM Veronica Connor RN I have felt sad or miserable. 0 09/26/2025 3:22 PM Veronica Connor RN I have been so unhappy that I have been crying. 0 09/26/2025 3:22 PM Veronica Connor RN The thought of harming mysel f has occurred to me. 0 09/26/2025 3:22 PM Veronica Connor RN [place] Depressi on Scale Total 0 09/26/2025 3:22 PM Veronica Connor RN * Restart Pain Assessment Timer Answer Entry Date Author Yes 09/26/2025 3:00 PM Moisés Connor RN * Weight in (lb) to have BMI = 25 Answer Entry Date Author 154.6 09/26/2025 3:00 PM Moisés Connor RN * BMI (Calculated) Answer Entry Date Author 42.6 09/26/2025 3:00 PM Moisés Connor RN * Percent Excess Weight Loss Answer Entry Date Author 0 09/26/2025 3:00 PM Moisés Connor RN * Weight Change Since Preop Answer Entry Date Author 119.5 09/26/2025 3:00 PM Moisés Connor RN * Initial Excess Weight Answer Entry Date Author -58.97 09/26/2025 3:00 PM Moisés Connor RN * IBW in kg (Bariatric) Answer Entry Date Author 58.97 09/26/2025 3:00 PM Moisés Connor RN * IBW in lb (Bariatric) Answer Entry Date Author 130 09/26/2025 3:00 PM Moisés Connor RN * Weight Change Since Last Visit Answer Entry Date Author 119.5 09/26/2025 3:00 PM Moisés Connor RN * Percent of IBW Answer Entry Date Author 202.65 09/26/2025 3:00 PM Moisés Connor RN * EBW (kg) Answer Entry Date Author 60.5 09/26/2025 3:00 PM Moisés Connor RN * EBW (lb) Answer Entry Date Author 133.45 09/26/2025 3:00 PM Moisés Connor RN * Difference in Weight Since Last Visit Answer Entry Date Author 119.5 09/26/2025 3:00 PM Moisés Connor RN * Temp (in Celsius) for [place] Answer Entry Date Author 36.9 09/26/2025 3:00 PM Moisés Connor RN * IBW/kg (Calculated) Answer Entry Date Author 59.3 09/26/2025 3:00 PM Moisés Connor RN * Adult Low Range Vt 6mL/kg Answer Entry Date Author 355.8 09/26/2025 3:00 PM Moisés Connor RN * Adult Moderate Range Vt 8mL/kg Answer Entry Date Author 474.4 09/26/2025 3:00 PM Moisés Connor RN * Adult High Range Vt 10mL/kg Answer Entry Date Author 593 09/26/2025 3:00 PM Moisés Connor RN * Pain Score Answer Entry Date Author 0 09/26/2025 3:00 PM Moisés Connor RN * Vitals Timer Question Answer Entry Date Author Restart Vitals Timer Yes 09/26/2025 3:[address] Veronica Strickland RN * Pain Screening Answer Entry Date Author 0-10 09/26/2025 3:00 PM Moisés Connor RN documented in this encounter Miscellaneous Notes * Progress Notes - Veronica Garcia, [employer] - 09/26/2025 2:30 PM EST Initial Note Subjective 35y/o @ 16w5d here for initial visit. Pt primarily seen by Dr Kiser in [place]. c/b pre-diabetes, CHTN, h/o preeclampsia in G2, obesity, AMA and prior C/S x 2. Reports +flutters. Denies vaginal bleeding, leakage of fluids and contractions. BSUS with + movement. OB History Para Term AB Living 3 2 2 2 SAB IAB Ectopic Multiple Live Births 2 # Outcome Date GA Lbr Salo/2nd Weight Sex Type Anes PTL Lv 3 Current 2 Term 02/02/13 38w0d 3175 g M CS-LTranv Spinal N [place]IBEL Complications: H/O pre-eclampsia 1 Term 03/19/11 37w0d 3629 g M CS-LTranv Spinal N MARIBEL Complications: Failure to Progress in Second Stage, Esophageal fistula [place] Depression Scale Total: 0 Past Medical History She has a past medical history of Advanced maternal age in multigravida, Chronic hypertension, Hyperlipidemia, Obesity, Preeclampsia (2012), and Type 2 diabetes (2021). Past Surgical History She has a past surgical history that includes section, low transverse (2010). Social History She reports that she has never smoked. She has never used smokeless tobacco. She reports that she does not currently use drugs after having used the following drugs: Marijuana. She reports that she does not drink alcohol. Family History Her family history includes Anemia in her mother; Diabetes type II in her father and mother; Heart attack in her father and mother; Hypercholesterolemia in her mother; Hypertension in her mother. Allergies She has no known allergies. Current Medications She has a current medication list which includes the following prescription(s): ascorbic acid, aspirin, cholecalciferol, dexcom g7 sensor, ferrous sulfate, labetalol, and vit-fe fumarate-fa. Review of Systems Objective Physical Exam Visit Vitals BP 119/74 Pulse 78 Temp 36.9 ??C (98.5 ??F) (Tympanic) Resp 20 Pregravid weight: Pregravid weight not on file Pregravid BMI: Could not be calculated Body mass index is 42.52 kg/m??. See encounter summary and flowsheet for exam details. Physical Exam Constitutional: Appearance: Normal appearance. HENT: Head: Normocephalic. Cardiovascular: Rate and Rhythm: Normal rate. Pulmonary: Effort: Pulmonary effort is normal. Abdominal: Palpations: Abdomen is soft. Neurological: Mental Status: She is alert and oriented to person, place, and time. Skin: General: Skin is warm and dry. Psychiatric: Mood and Affect: Mood normal. Behavior: Behavior normal. Vitals reviewed. Assessment & Plan Supervision of high risk , antepartum Orders: POCT Urinalysis Dipstick care O+/RNI/RPRNR/HepB-/HepC-/HIVNR Reports negative pap in early Continues PNV Declines flu vaccine Anatomy US 10/12 Pre-diabetes Denies h/o T2DM Reports previous diagnosis of yxb-culazdhv-vvvlxw of year Started Ozempic in 2023 and lost over 100lbs A1C 4.9 on 08/01 Dexcom avg 121, 98% in range (70-180), 2% high Reports Dexcom readings are 20-30 higher than glucometer readings Will check fastings and 2hr post meals No current meds Declines diabetes education CHTN H/o preeclampsia in G2 Discontinued Lisinopril @ 6 weeks gestation BP today 119/74 Reports normal BP's @ home Continues Labetalol 200mg/100mg and ASA 81mg daily Obesity BMI 42.52 AMA Reports negative NIPT Prior section x 2 G1-arrest of dilation G2-R C/S Plan for R C/S RTC on 10/12 documented in this encounter Plan of Treatment Upcoming Encounters Date Type Department Care Team (Late st Contact Info) Description 11/16/2025 11:30 AM EST Appointment Medical Office Building Obstetrics and Gynecology [address], [address] [place] [address] 11/16/2025 3:45 PM EST Routine [facility] [address], [address] [place] [address] Debra Olguin MD [address] [place] [address] documented as of this encounter Procedures Procedure Name Priority Date/Time Associated Diagnosis Comments POCT URINALYSIS DIPSTICK Routine 09/26/2025 3:24 PM EST Supervision of high risk , antepartum documented in this encounter Results * POCT Urinalysis Dipstick (09/26/2025 3:24 PM EST) POCT Urine Color Yellow POCT Urine Clarity Clear POCT Glucose Urine Negative Negative mg/dL POCT Bilirubin, Urine Negative Negative POCT Ketones, Urine Negative Negative mg/dL POCT Specific [place], Urine >=1.030 POCT Blood, Urine Negative Negative POCT pH, Urine 5.5 5.0 to 8.0 POCT Protein, Urine Negative Negative mg/dL POCT Urobilinogen, Urine 0.2 0.2, 1 E.U./dL POCT Nitrite, Urine Negative Negative POCT Leukocyte Esterase, Urine Negative Negative Test Strip Lot Number [id number] Test Strip Lot Expiration [id number] Urine Urine specimen obtained by clean catch procedure / Unknown 09/26/2025 3:24 PM EST us Debra Olguin MD POINT OF CARE TEST ENTER/ED IT ORDERABLES Final Result documented in this encounter Visit Diagnoses Diagnosis Supervision of high risk , antepartum- Primary documented in this encounter Additional Health Concerns Assessment Noted Time PHQ-9 Depression Total Score: 0 09/26/20 25 3:20 PM EST documented as of this encounter
--- OUTSIDE RECORDS SUMMARY | 2025-10-12 11:00 | XMS_ITS | Encounter Summary ---
Author Organization [facility] Address [address] [place] [address] Care Team Providers Care Vice President Media Relations Name Role Phone Pcp, No Primary Care Provider Unavailabl e Reason for Referral * Imaging (Routine) - Closed Specialty Diagnoses / Procedures Referred By Gianna t Referred To Contact Diagnoses Type 2 diabetes mellitus during , antepartum, second trimester Obesity Procedures OB US Detail Anatomy Veronica Arciniega DO [facility] [id number] fax: Referral ID Status Reason Start Date Expiration Date Visits Re quested Visits Authorized [id number] Closed 09/13/2025 03/15/2027 1 1 Reason for Visit * Imaging (Routine) - Closed Specialty Diagnoses / Procedures Referred By Gianna t Referred To Contact Diagnoses Type 2 diabetes mellitus during , antepartum, second trimester Obesity Procedures OB US Detail Anatomy Veronica Arciniega DO [facility] [id number] [id number] fax: Referral ID Status Reason Start Date Expiration Date Visits Re quested Visits Authorized [id number] Closed 09/13/2025 03/15/2027 1 1 Encounter Details Date Type Department Care Team (Latest Contact Info) Description 10/12/2025 11:00 AM EST - 10/12/2025 11:59 PM EST Hospital Encounter Medical Office Building Obstetrics and Gynecology [address], [address] [place] [address] Type 2 diabetes mellitus during , antepartum, second trimester; Obesity Discharge Disposition: Home or Self Care Social History Tobacco Use Types Packs/Day Years Used Date Smoking Tobacco: Never Passive Smoke Exposure: Never Smokeless Tobacco: Never Alcohol Use Standard [...] 09/26/2025 How often do you attend chur or protestant services? Never 09/26/2025 Do you belong to any clubs o r organizations such as bahai groups, unions, fraternal or athletic groups, or [...] and heating? Not hard at all 09/26/2025 [facility] [place] [facility] - Occupational Stress [...] any time in the past [address] [facility], were you homeless or living in a fpc (including now)? No 09/26/2025 [facility] Utilities Answer Date Recorded In the past 12 months has th e electric, gas, oil, or water company threatened to shut off services in your home? No 09/26/2025 Gypsy Depression Scale Answer Date Recorded Gypsy Depression Scale Total 0 09/26/2025 The thought [...] on file documented as of this encounter Medications at Time of Discharge Alcohol Swabs pads Apply 1 pad 3 times a day by topical route for 30 days, for testing. 09/28/2025 ascorbic acid (vitamin C) 1000 MG tablet Take 1 tablet by mouth daily. aspirin 81 MG EC tablet Take 1 tablet by mouth daily. Blood Glucose Monitoring Suppl (FreeStyle Lite) w/Device kit USE DIRECTED TO TEST THREE TIMES DAILY NEEDED 05/31/2025 cholecalciferol (Vitamin D-3) 250 MCG (80320 UT) capsule Take 1 capsule by mouth daily. Continuous Glucose Sensor (Dexcom G7 Sensor) misc use as directed 08/18/2025 ferrous sulfate 324 (65 Fe) MG EC tablet Take 1 tablet by mouth daily with breakfast. Do not crush, chew, or split. FreeStyle Lancets USE DIRECTED TO TEST THREE TIMES DAILY NEEDED 05/29/2025 FREESTYLE LITE test strip USE DIRECTED TO TEST THREE TIMES DAILY NEEDED 05/29/2025 labetalol (Normodyne) 200 MG tablet Take 1 tablet by mouth 2 times a day. Vit-Fe Fumarate-FA ( VITAMINS PO) Take 1 tablet by mouth daily. metFORMIN XR (Glucophage-XR) 500 MG 24 hr tablet Take 1 tablet by mouth 2 times a day. Do not crush, chew, or split. 60 tablet 2 10/12/2025 11/03/2025 documented as of this encounter Plan of Treatment Upcoming Encounters Date Type Department Care Team (Darrian dejesus Contact Info) Description 11/16/2025 11:30 AM EST Appointment Medical Office Building Obstetrics and Gynecology [address] [facility], [address] [place] [address] 11/16/2025 3:45 PM EST Routine [facility] [address], [address] [place] [id number] Debra Olguin MD [address] [facility] [address] [place] [address] documented as of this encounter Procedures Procedure Name Priority Date/Time Associated Diagnosis Comments OB US DETAIL ANATOMY Routine 10/12/2025 12:10 PM EST Type 2 diabetes mellitus during , antepartum, second trimester Obesity documented in this encounter Results * OB US Detail Anatomy (10/12/2025 12:10 PM EST) Anatomical Region Laterality Modality Body Ultrasound 10/12/2025 11:2 6 AM EST Impressions 10/13/2025 8:21 AM EST The OB Ultrasound you requested has been resulted. Please navigate to the Imaging tab in [employer] for review. This message has been generated by the interface. Narrative Procedure Note Marcela Heredia MD - 10/13/2025 IMPRESSION: The OB Ultrasound you requested has been resulted. Please navigate to theImaging tab in [employer] for review. This message has been generated by theinterface. us Veronica Arciniega DO IMG OB US PROCEDURES Final Res ult documented in this encounter Visit Diagnoses Diagnosis Type 2 diabetes mellitus during , antepartum, second trimester Obesity Obesity, unspecified documented in this encounter Additional Health Concerns Assessment Noted Time PHQ-9 Depression Total Score: 0 09/26/20 3:20 PM EST documented as of this encounter Care Teams Vice President Media Relations Relationship Specialty Start Date End Date Pcp, [place] [address] PCP - General Family Medicine 10/12/25 documented as of this encounter
--- OUTSIDE RECORDS SUMMARY | 2025-10-12 13:15 | XMS_ITS | Encounter Summary ---
Author Organization Healthcare Address [address] [place] [address] Care Team Providers Care Medical Administrative Assistant Name Role Phone Pcp, No Primary Care Provider Unavailabl e Encounter Details Date Type Department Care Team (Latest Contact Info) Description 10/12/2025 1:15 PM EST Routine [facility] [address] [facility], [address] [place] [address] Debra Olguin MD [address] [facility] [address] [place] [address] Supervision of high risk , antepartum (Primary Dx) Social History Tobacco Use Types Packs/Day Years Used Date Smoking Tobacco: Never Passive Smoke Exposure: Never Smokeless Tobacco: Never Tobacco Cessation:Counseling Given: Not Answered Alcohol Use Standard Drinks/Week Comments Never 0 [...] How often do you attend chur or adventist services? Never 09/26/2025 Do you belong to any clubs o r organizations such as zoroastrian groups, unions, fraternal or athletic groups, or [...] and heating? Not hard at all 09/26/2025 [facility] - Occupational Stress [...] time in the past [address] [facility], were you homeless or living in a senior living (including now)? No 09/26/2025 [facility] Utilities Answer Date Recorded In the past 12 months has th e electric, gas, oil, or water company threatened to shut off services in your home? No 09/26/2025 [place] Depression Scale Answer Date Recorded [place] Depression Scale Total 0 09/26/2025 The thought [...] Sign Reading Time Taken Comments Blood Pressure 120/84 10/12/2025 1:22 PM EST Pulse 66 10/12/2025 1:22 PM EST Temperature 36.8 C (98.3 F) 10/12/2025 1:22 PM EST Respiratory Rate 20 10/12/2025 1:22 PM EST Oxygen Saturation 98% 10/12/2025 1:22 PM EST Inhaled Oxygen Concentration - - Weight 121 kg (266 lb 8.6 oz) 10/12/2025 1:22 PM EST Height 167.6 cm (5' 6 ) 10/12/2025 1:22 PM EST Body Mass Index 43.02 10/12/2025 1:22 PM EST documented in this encounter Functional Status * BP Answer Date of Assessment Author 120/84 10/12/2025 1:22 PM EST Maria , Ali'Yah M, HIDE GRADER * Temp Answer Date of Assessment Author 98.3 10/12/2025 1:22 PM EST Maria , Ali'Yah M, HIDE GRADER * Temp src Answer Date of Assessment Author Tympanic 10/12/2025 1:22 PM EST Maria , Ali'Yah M, HIDE GRADER * Pulse Answer Date of Assessment Author 66 10/12/2025 1:22 PM EST Maria , Ali'Yah M, HIDE GRADER * Resp Answer Date of Assessment Author 20 10/12/2025 1:22 PM EST Maria , Ali'Yah M, HIDE GRADER * SpO2 Answer Date of Assessment Author 98 10/12/2025 1:22 PM EST Maria , Ali'Yah M, HIDE GRADER * Height Answer Date of Assessment Author 66 10/12/2025 1:22 PM EST Maria , Ali'Yah M, HIDE GRADER * Weight Answer Date of Assessment Author 4264.58 10/12/2025 1:22 PM EST Maria , Ali'Yah M, HIDE GRADER * BMI (Calculated) Answer Date of Assessment Author 43.1 10/12/2025 1:22 PM EST Maria , Ali'Yah M, HIDE GRADER * Percent Excess Weight Loss Answer Date of Assessment Author 0 10/12/2025 1:22 PM EST Maria , Ali'Yah M, HIDE GRADER * Total Weight Change Percent Answer Date of Assessment Author 2222 10/12/2025 1:22 PM EST Maria , Ali'Yah M, HIDE GRADER * Weight Change Since Preop Answer Date of Assessment Author 120.87 10/12/2025 1:22 PM EST Maria , Ali'Yah M, HIDE GRADER * Initial Excess Weight Answer Date of Assessment Author -58.97 10/12/2025 1:22 PM EST Maria , Ali'Yah M, HIDE GRADER * IBW in lbs (Bariatric) Answer Date of Assessment Author 130 10/12/2025 1:22 PM EST Maria , AliConnieYah M, HIDE GRADER * Weight Change Since Last Visit Answer Date of Assessment Author 120.87 10/12/2025 1:22 PM EST Maria , Ali'Yah M, HIDE GRADER * IBW in kg (Bariatric) Answer Date of Assessment Author 58.97 10/12/2025 1:22 PM EST Maria , Ali'Yah M, HIDE GRADER * Percent of IBW Answer Date of Assessment Author 7,231.78 10/12/2025 1:22 PM EST Maria , Ali'Yah M, HIDE GRADER * EBW (kg) Answer Date of Assessment Author 4,262.91 10/12/2025 1:22 PM EST Maria , Ali'Yah M, HIDE GRADER * EBW (lbs) Answer Date of Assessment Author 4,256.46 10/12/2025 1:22 PM EST Maria , AliConnieYah M, HIDE GRADER * Weight Change 24 hrs Answer Date of Assessment Author 1.4 10/12/2025 1:22 PM EST Maria , AliConnieYah M, HIDE GRADER * BSA (Calculated - sq m) Answer Date of Assessment Author 2.37 10/12/2025 1:22 PM EST Maria , Ali'Yah M, HIDE GRADER * BMI (Calculated) Answer Date of Assessment Author 43.04 10/12/2025 1:22 PM EST Maria , AntoniaYah M, HIDE GRADER * BP Location Answer Date of Assessment Author Right arm 10/12/2025 1:22 PM EST Maria , Ali'Yah M, HIDE GRADER * IBW/kg (Calculated) Male Answer Date of Assessment Author 63.8 10/12/2025 1:22 PM EST Maria , Ali'Yah M, HIDE GRADER * IBW/kg (Calculated) Female Answer Date of Assessment Author 59.3 10/12/2025 1:22 PM EST Maria , Ali'Yah M, HIDE GRADER * Restart Vitals Timer Answer Date of Assessment Author Yes 10/12/2025 1:22 PM EST Maria , Ali'Yah M, HIDE GRADER * IBW/kg (Calculated) Answer Date of Assessment Author 59.3 10/12/2025 1:22 PM EST Maria , Ali'Yah M, HIDE GRADER * Weight in (lb) to have BMI = 25 Answer Date of Assessment Author 154.6 10/12/2025 1:22 PM EST Maria , Ali'Yah M, HIDE GRADER * BMI (Calculated) Answer Date of Assessment Author 43.1 10/12/2025 1:22 PM EST Maria , Ali'Yah M, HIDE GRADER * Percent Excess Weight Loss Answer Date of Assessment Author 0 10/12/2025 1:22 PM EST Maria , Ali'Yah M, HIDE GRADER * Weight Change Since Preop Answer Date of Assessment Author 120.9 10/12/2025 1:22 PM EST Maria , Ali'Yah M, HIDE GRADER * Initial Excess Weight Answer Date of Assessment Author -58.97 10/12/2025 1:22 PM EST Maria , Sean'Yah M, HIDE GRADER * IBW in kg (Bariatric) Answer Date of Assessment Author 58.97 10/12/2025 1:22 PM EST Maria , Sean'Yah M, HIDE GRADER * IBW in lb (Bariatric) Answer Date of Assessment Author 130 10/12/2025 1:22 PM EST Maria , Ali'Yah M, HIDE GRADER * Weight Change Since Last Visit Answer Date of Assessment Author 1.4 10/12/2025 1:22 PM EST Maria , Ali'Yah M, HIDE GRADER * Percent of IBW Answer Date of Assessment Author 205.03 10/12/2025 1:22 PM EST Maria , Ali'Yah M, HIDE GRADER * EBW (kg) Answer Date of Assessment Author 61.9 10/12/2025 1:22 PM EST Maria , Ali'Yah M, HIDE GRADER * EBW (lb) Answer Date of Assessment Author 136.54 10/12/2025 1:22 PM EST Maria , Ali'Yah M, HIDE GRADER * Difference in Weight Since Last Visit Answer Date of Assessment Author 1.4 10/12/2025 1:22 PM EST Maria , Ali'Yah M, HIDE GRADER * Temp (in Celsius) for SHOALWATER IV Answer Date of Assessment Author 36.8 10/12/2025 1:22 PM EST Jessica Sifuentes M, HIDE GRADER * IBW/kg (Calculated) Answer Date of Assessment Author 59.3 10/12/2025 1:22 PM EST Jessica Sifuentes M, HIDE GRADER * Adult Low Range Vt 6mL/kg Answer Date of Assessment Author 355.8 10/12/2025 1:22 PM EST Jessica Sifuentes M, HIDE GRADER * Adult Moderate Range Vt 8mL/kg Answer Date of Assessment Author 474.4 10/12/2025 1:22 PM EST Jessica Sifuentes M, HIDE GRADER * Adult High Range Vt 10mL/kg Answer Date of Assessment Author 593 10/12/2025 1:22 PM EST Jessica Sifuentes M, HIDE GRADER * Pain Score Answer Date of Assessment Author 0 10/12/2025 1:23 PM EST Jessica Sifuentes M, HIDE GRADER * Vitals Timer Question Answer Date of Assessment Author Restart Vitals Timer Yes 10/12/2025 1:[address] Jessica Sifuentes M, HIDE GRADER * Patient Position Answer Date of Assessment Author Sitting 10/12/2025 1:22 PM EST Jessica Sifuentes M, HIDE GRADER * Pain Screening/Additional Assessments Question Answer Date of Assessment Author Pain Screening/Assessments Pain Screening 10/12/2025 1:23 PM EST Antonia Sifuentes M, HIDE GRADER * Pain Screening Answer Date of Assessment Author 0-10 10/12/2025 1:23 PM EST Jessica Sifuentes M, HIDE GRADER * BP Answer Date of Assessment Author 120/84 10/12/2025 1:22 PM EST Raleigh Sifuentesh M, HIDE GRADER * Temp Answer Date of Assessment Author 98.3 10/12/2025 1:22 PM EST Raleigh Sifuentesh M, HIDE GRADER * Temp src Answer Date of Assessment Author Tympanic 10/12/2025 1:22 PM EST Maria Raleighh M, HIDE GRADER * Pulse Answer Date of Assessment Author 66 10/12/2025 1:22 PM EST Maria Raleighh M, HIDE GRADER * Resp Answer Date of Assessment Author 20 10/12/2025 1:22 PM EST Jessica Sifuentes M, HIDE GRADER * SpO2 Answer Date of Assessment Author 98 10/12/2025 1:22 PM EST Jessica Sifuentes M, HIDE GRADER * Height Answer Date of Assessment Author 66 10/12/2025 1:22 PM EST Jessica Sifuentes M, HIDE GRADER * Weight Answer Date of Assessment Author 4264.58 10/12/2025 1:22 PM EST Jessica Sifuentes M, HIDE GRADER * BSA (Calculated - sq m) Answer Date of Assessment Author 2.37 10/12/2025 1:22 PM EST Jessica Sifuentes M, HIDE GRADER * BMI (Calculated) Answer Date of Assessment Author 43.04 10/12/2025 1:22 PM EST Jessica Hayes M, HIDE GRADER * BP Location Answer Date of Assessment Author Right arm 10/12/2025 1:22 PM EST Jessica Sifuentes M, HIDE GRADER * Restart Vitals Timer Answer Date of Assessment Author Yes 10/12/2025 1:22 PM EST Jessica Sifuentes M, HIDE GRADER * Weight in (lb) to have BMI = 25 Answer Date of Assessment Author 154.6 10/12/2025 1:22 PM EST Jessica Sifuentes M, HIDE GRADER * Pain Score Answer Date of Assessment Author 0 10/12/2025 1:23 PM EST Jessica Sifuentes M, HIDE GRADER * Patient Position Answer Date of Assessment Author Sitting 10/12/2025 1:22 PM EST Jessica Sifuentes M, HIDE GRADER documented as of this encounter Mental Status * BP Answer Entry Date Author 120/84 10/12/2025 1:22 PM EST Jessica Sifuentes M, HIDE GRADER * Temp Answer Entry Date Author 98.3 10/12/2025 1:22 PM EST Raleigh Sifuentesh M, HIDE GRADER * Temp src Answer Entry Date Author Tympanic 10/12/2025 1:22 PM EST Raleigh Sifuentesh M, HIDE GRADER * Pulse Answer Entry Date Author 66 10/12/2025 1:22 PM EST Maria , Ali'Yah M, HIDE GRADER * Resp Answer Entry Date Author 20 10/12/2025 1:22 PM EST Jessica Sifuentes M, HIDE GRADER * SpO2 Answer Entry Date Author 98 10/12/2025 1:22 PM EST Jessica Sifuentes M, HIDE GRADER * Height Answer Entry Date Author 66 10/12/2025 1:22 PM EST Jessica Sifuentes M, HIDE GRADER * Weight Answer Entry Date Author 4264.58 10/12/2025 1:22 PM EST Jessica Sifuentes M, HIDE GRADER * BMI (Calculated) Answer Entry Date Author 43.1 10/12/2025 1:22 PM EST Jesscia Sifuentes M, HIDE GRADER * Percent Excess Weight Loss Answer Entry Date Author 0 10/12/2025 1:22 PM EST Jessica Sifuentes M, HIDE GRADER * Total Weight Change Percent Answer Entry Date Author 22210/12/2025 1:22 PM EST Jessica Sifuentes M, HIDE GRADER * Weight Change Since Preop Answer Entry Date Author 120.87 10/12/2025 1:22 PM EST Jessica Sifuentes M, HIDE GRADER * Initial Excess Weight Answer Entry Date Author -58.97 10/12/2025 1:22 PM EST Jessica Sifuentes M, HIDE GRADER * IBW in lbs (Bariatric) Answer Entry Date Author 130 10/12/2025 1:22 PM EST Jessica Sifuentes M, HIDE GRADER * Weight Change Since Last Visit Answer Entry Date Author 120.87 10/12/2025 1:22 PM EST Jessica Sifuentes M, HIDE GRADER * IBW in kg (Bariatric) Answer Entry Date Author 58.97 10/12/2025 1:22 PM EST Jessica Sifuentes M, HIDE GRADER * Percent of IBW Answer Entry Date Author 7,231.78 10/12/2025 1:22 PM EST Jessica Sifuentes M, HIDE GRADER * EBW (kg) Answer Entry Date Author 4,262.91 10/12/2025 1:22 PM EST Jessica Sifuentes M, HIDE GRADER * EBW (lbs) Answer Entry Date Author 4,256.46 10/12/2025 1:22 PM EST Jessica Sifuentes M, HIDE GRADER * Weight Change 24 hrs Answer Entry Date Author 1.4 10/12/2025 1:22 PM EST Jessica Sifuentes M, HIDE GRADER * BSA (Calculated - sq m) Answer Entry Date Author 2.37 10/12/2025 1:22 PM EST Jessica Sifuentes M, HIDE GRADER * BMI (Calculated) Answer Entry Date Author 43.04 10/12/2025 1:22 PM EST Jessica Sifuentes M, HIDE GRADER * BP Location Answer Entry Date Author Right arm 10/12/2025 1:22 PM EST Jessica Sifuentes M, HIDE GRADER * IBW/kg (Calculated) Male Answer Entry Date Author 63.8 10/12/2025 1:22 PM EST Jessica Sifuentes M, HIDE GRADER * IBW/kg (Calculated) Female Answer Entry Date Author 59.3 10/12/2025 1:22 PM EST Jessica Sifuentes M, HIDE GRADER * Restart Vitals Timer Answer Entry Date Author Yes 10/12/2025 1:22 PM EST Jessica Sifuentes M, HIDE GRADER * IBW/kg (Calculated) Answer Entry Date Author 59.3 10/12/2025 1:22 PM EST Jessica Sifuentes M, HIDE GRADER * Restart Pain Assessment Timer Answer Entry Date Author Yes 10/12/2025 1:23 PM EST Jessica Sifuentes M, HIDE GRADER * Weight in (lb) to have BMI = 25 Answer Entry Date Author 154.6 10/12/2025 1:22 PM EST MariaJessica marcus M, HIDE GRADER * BMI (Calculated) Answer Entry Date Author 43.1 10/12/2025 1:22 PM EST Jessica Sifuentes M, HIDE GRADER * Percent Excess Weight Loss Answer Entry Date Author 0 10/12/2025 1:22 PM EST Maria , Raleighh M, HIDE GRADER * Weight Change Since Preop Answer Entry Date Author 120.9 10/12/2025 1:22 PM EST MariaJessica olivas M, HIDE GRADER * Initial Excess Weight Answer Entry Date Author -58.97 10/12/2025 1:22 PM EST Jessica Sifuentes M, HIDE GRADER * IBW in kg (Bariatric) Answer Entry Date Author 58.97 10/12/2025 1:22 PM EST Jessica Sifuentes M, HIDE GRADER * IBW in lb (Bariatric) Answer Entry Date Author 130 10/12/2025 1:22 PM EST Jessica Sifuentes M, HIDE GRADER * Weight Change Since Last Visit Answer Entry Date Author 1.4 10/12/2025 1:22 PM EST Jessica Sifuentes M, HIDE GRADER * Percent of IBW Answer Entry Date Author 205.03 10/12/2025 1:22 PM EST Jessica Sifuentes M, HIDE GRADER * EBW (kg) Answer Entry Date Author 61.9 10/12/2025 1:22 PM EST Jessica Sifuentes M, HIDE GRADER * EBW (lb) Answer Entry Date Author 136.54 10/12/2025 1:22 PM EST Jessica Sifuentes M, HIDE GRADER * Difference in Weight Since Last Visit Answer Entry Date Author 1.4 10/12/2025 1:22 PM EST Jessica Sifuentes M, HIDE GRADER * Temp (in Celsius) for SHOALWATER IV Answer Entry Date Author 36.8 10/12/2025 1:22 PM EST Jessica Sifuentes M, HIDE GRADER * IBW/kg (Calculated) Answer Entry Date Author 59.3 10/12/2025 1:22 PM EST Jessica Sifuentes M, HIDE GRADER * Adult Low Range Vt 6mL/kg Answer Entry Date Author 355.8 10/12/2025 1:22 PM EST Jessica Sifuentes M, HIDE GRADER * Adult Moderate Range Vt 8mL/kg Answer Entry Date Author 474.4 10/12/2025 1:22 PM EST Jessica Sifuentes M, HIDE GRADER * Adult High Range Vt 10mL/kg Answer Entry Date Author 593 10/12/2025 1:22 PM EST Jessica Sifuentes M, HIDE GRADER * Pain Score Answer Entry Date Author 0 10/12/2025 1:23 PM EST Jessica Sifuentes, HIDE GRADER * BP Cuff Size Answer Entry Date Author Adult 10/12/2025 1:22 PM EST Jessica Sifuentes, HIDE GRADER * Vitals Timer Question Answer Entry Date Author Restart Vitals Timer Yes 10/12/2025 1:[address] Jessica Sifuentes M, HIDE GRADER * Patient Position Answer Entry Date Author Sitting 10/12/2025 1:22 PM EST Jessica Sifuentes, HIDE GRADER * Pain Screening Answer Entry Date Author 0-10 10/12/2025 1:23 PM EST Jessica Sifuentes M, HIDE GRADER documented in this encounter Miscellaneous Notes * Progress Notes - Veronica Garcia, EXPERIENCE SPECIALIST - 10/12/2025 1:15 PM EST 35 y.o. @ 19w0d here today for return OB visit. Reports + flutters. Denies vaginal bleeding, leakage of fluids and contractions. Visit Vitals BP 120/84 (BP Location: Right arm, Patient Position: Sitting, BP Cuff Size: Adult) Pulse 66 Temp 36.8 ??C (98.3 ??F) (Tympanic) Ht 1.676 m (5' 6 ) Wt 121 kg (266 lb 8.6 oz) SpO2 98% BMI 43.02 kg/m?? Physical Exam Constitutional: Appearance: Normal appearance. HENT: Head: Normocephalic. Pulmonary: Effort: Pulmonary effort is normal. Neurological: Mental Status: She is alert and oriented to person, place, and time. Skin: General: Skin is warm and dry. Psychiatric: Mood and Affect: Mood normal. Behavior: Behavior normal. Vitals reviewed. care O+/RNI/RPRNR/HepB-/HepC-/HIVNR Reports negative pap in early Continues PNV Declines flu vaccine Anatomy US today 10/12-EFW 295gm, AC 57%, breech/cephalic, posterior, fundal placenta, 3VC, AF normal, male, CL 40.0mm Pre-diabetes Denies h/o T2DM Reports previous diagnosis of lux-ixlhqbea-ormhbu of year Started Ozempic in 2023 and lost over 100lbs A1C 4.9 on 08/01 Declines diabetes education Dexcom avg 122, 76% in range (65-140), 24% high Prescribed Metformin 500mg BID CHTN H/o preeclampsia in G2 Discontinued Lisinopril @ 6 weeks gestation Reports BP's @ home 106-120's/70's BP today 120/84 Continues Labetalol 200mg daily and ASA 81mg Obesity BMI 43.02 AMA Reports negative NIPT Prior section x 2 G1-arrest of dilation G2-R C/S Plan for R C/S Has appt in [place] on 10/16 RTC in 2 weeks documented in this encounter Plan of Treatment Upcoming Encounters Date Type Department Care Team (Late st Contact Info) Description 11/16/2025 11:30 AM EST Appointment Medical Office Building Obstetrics and Gynecology [address] [facility], [address] [place] [address] 11/16/2025 3:45 PM EST Routine [facility] [address] [place] [address] Debra Olguin MD [address] [facility] [address] [place] [address] documented as of this encounter Procedures Procedure Name Priority Date/Time Associated Diagnosis Comments POCT URINALYSIS DIPSTICK Routine 10/12/2025 1:24 PM EST Supervision of high risk , antepartum documented in this encounter Results * POCT Urinalysis Dipstick (10/12/2025 1:24 PM EST) POCT Urine Color Yellow POCT Urine Clarity Clear POCT Glucose Urine Negative Negative mg/dL POCT Bilirubin, Urine Negative Negative POCT Ketones, Urine Negative Negative mg/dL POCT Specific [place], Urine >=1.030 POCT Blood, Urine Negative Negative POCT pH, Urine 6.0 5.0 to 8.0 POCT Protein, Urine Negative Negative mg/dL POCT Urobilinogen, Urine 1 0.2, 1 E.U./dL POCT Nitrite, Urine Negative Negative POCT Leukocyte Esterase, Urine Negative Negative Test Strip Lot Number [id number] Test Strip Lot Expiration 01/2026 Urine Urine specimen obtained by clean catch procedure / Unknown 10/12/2025 1:24 PM EST us Debra Olguin MD POINT OF CARE TEST ENTER/ED IT ORDERABLES Final Result documented in this encounter Visit Diagnoses Diagnosis Supervision of high risk , antepartum- Primary documented in this encounter Additional Health Concerns Assessment Noted Time PHQ-9 Depression Total Score: 0 09/26/20 3:20 PM EST documented as of this encounter Care Teams Medical Administrative Assistant Relationship Specialty Start Date End Date Pcp, Krista [address] [place] [address] PCP - General Family Medicine 10/12/25 documented as of this encounter
--- OUTSIDE RECORDS SUMMARY | 2025-10-26 14:45 | XMS_ITS | Encounter Summary ---
Author Organization [facility] Address [address] [place] [address] Care Team Providers Care Scaleman Name Role Phone Pcp, No Primary Care Provider Unavailabl e Reason for Referral * Consultation (Routine) - Authorized Specialty Diagnoses / Procedures Referred By Contac t Referred To Contact Diagnoses Supervision of high risk , antepartum Veronica Garcia APRN [address] [address] Phone: tel: fax: Referral ID Status Reason Start Date Expiration Date V isits Requested Visits Authorized [id number] Authorized 10/26/2025 04/27/2027 1 1 Encounter Details Date Type Department Care Team (Latest Contact Info) Description 10/26/2025 2:45 PM EST Routine [facility] [address], [address] [place] [address] Debra Olguin MD [address] [facility] [address] [place] [address] Supervision of high risk , [...] How often do you attend chur or buddhism services? Never 09/26/2025 Do you belong to any clubs o r organizations such as evangelical groups, unions, fraternal or athletic groups, or school groups? No 09/26/2025 How often do you attend meet ings of the clubs or organizations you belong to? Never 09/26/2025 Are you , , di vorced, , never , or living with a partner? Living with partner 09/26/2025 AUDIT-C Answer Date Recorded Q1: How often do you have a drink containing alcohol? Never 10/26/2025 Q2: How many drinks containi ng alcohol do you have on a typical day when you are drinking? Patient does not drink Q3: How often do you have si x or more drinks on one occasion? Never 10/26/2025 Overall Financial Resource Strain (CARDIA) Answe r Date Recorded How hard is it for you to pa y for the very basics like food, housing, medical care, and heating? Not hard at all 09/26/2025 [facility] [place] [facility] Occupat ional Health - Occupational Stress [...] any time in the past 12 m [facility], were you homeless or living in a nursing home (including now)? No 09/26/2025 [facility] Utilities Answer Date Recorded In the past 12 months has [facility] [employer], gas, oil, or water [employer] threatened to shut off services in your home? No 09/26/2025 [place] Depression Scale Answer Date Recorded [place] Depression Scale Total 0 09/26/2025 The thought [...] Sign Reading Time Taken Comments Blood Pressure 115/80 10/26/2025 1:32 PM EST Pulse 78 10/26/2025 1:32 PM EST Temperature 36.6 C (97.8 F) 10/26/2025 1:32 PM EST Respiratory Rate 24 10/26/2025 1:32 PM EST Oxygen Saturation 97% 10/26/2025 1:32 PM EST Inhaled Oxygen Concentration - - Weight 121 kg (266 lb 5.1 oz) 10/26/2025 1:32 PM EST Height 167.6 cm (5' 6 ) 10/26/2025 1:32 PM EST Body Mass Index 42.98 10/26/2025 1:32 PM EST documented in this encounter Functional Status * BP Answer Date of Assessment Author 115/80 10/26/2025 1:32 PM EST Maria , Ali'Yah M, CASH REGISTER BALANCER * Temp Answer Date of Assessment Author 97.8 10/26/2025 1:32 PM EST Maria , Ali'Yah M, CASH REGISTER BALANCER * Temp src Answer Date of Assessment Author Tympanic 10/26/2025 1:32 PM EST Maria , Ali'Yah M, CASH REGISTER BALANCER * Pulse Answer Date of Assessment Author 78 10/26/2025 1:32 PM EST Mraia , Ali'Yah M, CASH REGISTER BALANCER * Resp Answer Date of Assessment Author 24 10/26/2025 1:32 PM EST Maria , Ali'Yah M, CASH REGISTER BALANCER * SpO2 Answer Date of Assessment Author 97 10/26/2025 1:32 PM EST Maria , Ali'Yah M, CASH REGISTER BALANCER * Height Answer Date of Assessment Author 66 10/26/2025 1:32 PM EST Maria , Ali'Yah M, CASH REGISTER BALANCER * Weight Answer Date of Assessment Author 4261.05 10/26/2025 1:32 PM EST Maria , Ali'Yah M, CASH REGISTER BALANCER * BMI (Calculated) Answer Date of Assessment Author 43.1 10/26/2025 1:32 PM EST Maria , Ali'Yah M, CASH REGISTER BALANCER * Percent Excess Weight Loss Answer Date of Assessment Author 0 10/26/2025 1:32 PM EST Maria , Ali'Yah M, CASH REGISTER BALANCER * Total Weight Change Percent Answer Date of Assessment Author 2222 10/26/2025 1:32 PM EST Maria , Ali'Yah M, CASH REGISTER BALANCER * Weight Change Since Preop Answer Date of Assessment Author 120.77 10/26/2025 1:32 PM EST Maria , Ali'Yah M, CASH REGISTER BALANCER * Initial Excess Weight Answer Date of Assessment Author -58.97 10/26/2025 1:32 PM EST Maria , Ali'Yah M, CASH REGISTER BALANCER * IBW in lbs (Bariatric) Answer Date of Assessment Author 130 10/26/2025 1:32 PM EST Maria , Ali'Yah M, CASH REGISTER BALANCER * Weight Change Since Last Visit Answer Date of Assessment Author 120.77 10/26/2025 1:32 PM EST Maria , Ali'Yah M, CASH REGISTER BALANCER * IBW in kg (Bariatric) Answer Date of Assessment Author 58.97 10/26/2025 1:32 PM EST Maria , Ali'Yah M, CASH REGISTER BALANCER * Percent of IBW Answer Date of Assessment Author 7,225.79 10/26/2025 1:32 PM EST Maria , Ali'Yah M, CASH REGISTER BALANCER * EBW (kg) Answer Date of Assessment Author 4,259.38 10/26/2025 1:32 PM EST Maria , Ali'Yah M, CASH REGISTER BALANCER * EBW (lbs) Answer Date of Assessment Author 4,252.93 10/26/2025 1:32 PM EST Roundtre e, Ali'Yah M, CASH REGISTER BALANCER * Weight Change 24 hrs Answer Date of Assessment Author -.1 10/26/2025 1:32 PM EST Maria , Ali'Yah M, CASH REGISTER BALANCER * BSA (Calculated - sq m) Answer Date of Assessment Author 2.37 10/26/2025 1:32 PM EST Maria , Ali'Yah M, CASH REGISTER BALANCER * BMI (Calculated) Answer Date of Assessment Author 43 10/26/2025 1:32 PM EST Maria , Ali'Yah M, CASH REGISTER BALANCER * BP Location Answer Date of Assessment Author Right arm 10/26/2025 1:32 PM EST Maria SeanAdrian Rodriguez, CASH REGISTER BALANCER * IBW/kg (Calculated) Male Answer Date of Assessment Author 63.8 10/26/2025 1:32 PM EST Maria , AliAdrian Rodriguez, CASH REGISTER BALANCER * IBW/kg (Calculated) Female Answer Date of Assessment Author 59.3 10/26/2025 1:32 PM Jessica Fuentes, CASH REGISTER BALANCER * Restart Vitals Timer Answer Date of Assessment Author Yes 10/26/2025 1:32 PM EST MariaJessica marcus, CASH REGISTER BALANCER * IBW/kg (Calculated) Answer Date of Assessment Author 59.3 10/26/2025 1:32 PM Jessica Fuentes CASH REGISTER BALANCER * AUDIT-C Score Answer Date of Assessment Author 0 10/26/2025 1:33 PM Jessica Fuentes, CASH REGISTER BALANCER * Alcohol Use Question Answer Date of Assessment Author Q1: How often do you have a drink containing alcohol? Never 10/26/2025 1:33 PM Raleigh Fuentes CASH REGISTER BALANCER Q2: How many drinks containing alcohol do you have on a typical day when you are drinking? Patient does not drink 10/26/2025 1:33 PM Jessica Fuentes, CASH REGISTER BALANCER Q3: How often do you have six or more drinks on one occasion? Never 10/26/2025 1:33 PM Raleigh Fuentes, CASH REGISTER BALANCER * Weight in (lb) to have BMI = 25 Answer Date of Assessment Author 154.6 10/26/2025 1:32 PM Jessica Fuentes, CASH REGISTER BALANCER * BMI (Calculated) Answer Date of Assessment Author 43.1 10/26/2025 1:32 PM Jessica Fuentes CASH REGISTER BALANCER * Percent Excess Weight Loss Answer Date of Assessment Author 0 10/26/2025 1:32 PM Jessica Fuentes, CASH REGISTER BALANCER * Weight Change Since Preop Answer Date of Assessment Author 120.8 10/26/2025 1:32 PM Jessica Fuentes CASH REGISTER BALANCER * Initial Excess Weight Answer Date of Assessment Author -58.97 10/26/2025 1:32 PM EST Maria , Ali'Yah M, CASH REGISTER BALANCER * IBW in kg (Bariatric) Answer Date of Assessment Author 58.97 10/26/2025 1:32 PM EST Maria , Ali'Yah M, CASH REGISTER BALANCER * IBW in lb (Bariatric) Answer Date of Assessment Author 130 10/26/2025 1:32 PM EST Maria , Ali'Yah M, CASH REGISTER BALANCER * Weight Change Since Last Visit Answer Date of Assessment Author -0.1 10/26/2025 1:32 PM EST Maria , Ali'Yah M, CASH REGISTER BALANCER * Percent of IBW Answer Date of Assessment Author 204.86 10/26/2025 1:32 PM EST Maria , Ali'Yah M, CASH REGISTER BALANCER * EBW (kg) Answer Date of Assessment Author 61.8 10/26/2025 1:32 PM EST Maria , Ali'Yah M, CASH REGISTER BALANCER * EBW (lb) Answer Date of Assessment Author 136.32 10/26/2025 1:32 PM EST Maria , Ali'Yah M, CASH REGISTER BALANCER * Difference in Weight Since Last Visit Answer Date of Assessment Author -0.1 10/26/2025 1:32 PM EST Maria , Ali'Yah M, CASH REGISTER BALANCER * Temp (in Celsius) for CADDO IV Answer Date of Assessment Author 36.6 10/26/2025 1:32 PM EST Maria , Ali'Yah M, CASH REGISTER BALANCER * IBW/kg (Calculated) Answer Date of Assessment Author 59.3 10/26/2025 1:32 PM EST Maria , Ali'Yah M, CASH REGISTER BALANCER * Adult Low Range Vt 6mL/kg Answer Date of Assessment Author 355.8 10/26/2025 1:32 PM EST Maria , Ali'Yah M, CASH REGISTER BALANCER * Adult Moderate Range Vt 8mL/kg Answer Date of Assessment Author 474.4 10/26/2025 1:32 PM EST Maria , Ali'Yah M, CASH REGISTER BALANCER * Adult High Range Vt 10mL/kg Answer Date of Assessment Author 593 10/26/2025 1:32 PM EST Maria , Ali'Yah M, CASH REGISTER BALANCER * Pain Score Answer Date of Assessment Author 0 10/26/2025 1:33 PM EST Maria , AntoniaYah M, CASH REGISTER BALANCER * Vitals Timer Question Answer Date of Assessment Author Restart Vitals Timer Yes 10/26/2025 1:[address] Maria, AntoniaYah M, CASH REGISTER BALANCER * Patient Position Answer Date of Assessment Author Sitting 10/26/2025 1:32 PM EST Maria , AntoniaYah M, CASH REGISTER BALANCER * Pain Screening/Additional Assessments Question Answer Date of Assessment Author Pain Screening/Assessments Pain Screening 10/26/2025 1:33 PM EST Maria, Sean RosalesYah M, CASH REGISTER BALANCER * Pain Screening Answer Date of Assessment Author 0-10 10/26/2025 1:33 PM EST Maria , AntoniaYah M, CASH REGISTER BALANCER * BP Answer Date of Assessment Author 115/80 10/26/2025 1:32 PM EST Maria , AntoniaYah M, CASH REGISTER BALANCER * Temp Answer Date of Assessment Author 97.8 10/26/2025 1:32 PM EST Maria , AntoniaYah M, CASH REGISTER BALANCER * Temp src Answer Date of Assessment Author Tympanic 10/26/2025 1:32 PM EST Maria , AntoniaYah M, CASH REGISTER BALANCER * Pulse Answer Date of Assessment Author 78 10/26/2025 1:32 PM EST Maria , AntoniaYah M, CASH REGISTER BALANCER * Resp Answer Date of Assessment Author 24 10/26/2025 1:32 PM EST Maria , AntoniaYah M, CASH REGISTER BALANCER * SpO2 Answer Date of Assessment Author 97 10/26/2025 1:32 PM EST Maria , AntoniaYah M, CASH REGISTER BALANCER * Height Answer Date of Assessment Author 66 10/26/2025 1:32 PM EST Maria , AntoniaYah M, CASH REGISTER BALANCER * Weight Answer Date of Assessment Author 4261.05 10/26/2025 1:32 PM EST Maria , Ali'Yah M, CASH REGISTER BALANCER * BSA (Calculated - sq m) Answer Date of Assessment Author 2.37 10/26/2025 1:32 PM EST Maria , Ali'Yah M, CASH REGISTER BALANCER * BMI (Calculated) Answer Date of Assessment Author 43 10/26/2025 1:32 PM EST Maria , Ali'Yah M, CASH REGISTER BALANCER * BP Location Answer Date of Assessment Author Right arm 10/26/2025 1:32 PM EST MariaJessica marcus M, CASH REGISTER BALANCER * Restart Vitals Timer Answer Date of Assessment Author Yes 10/26/2025 1:32 PM EST Maria , Raleighh M, CASH REGISTER BALANCER * Weight in (lb) to have BMI = 25 Answer Date of Assessment Author 154.6 10/26/2025 1:32 PM EST MariaRaleigh marcush M, CASH REGISTER BALANCER * Pain Score Answer Date of Assessment Author 0 10/26/2025 1:33 PM EST Maria , Raleighh M, CASH REGISTER BALANCER * Patient Position Answer Date of Assessment Author Sitting 10/26/2025 1:32 PM EST MariaRaleigh marcush M, CASH REGISTER BALANCER documented as of this encounter Mental Status * BP Answer Entry Date Author 115/80 10/26/2025 1:32 PM EST Maria Raleighh M, CASH REGISTER BALANCER * Temp Answer Entry Date Author 97.8 10/26/2025 1:32 PM EST Maria , Raleighh M, CASH REGISTER BALANCER * Temp src Answer Entry Date Author Tympanic 10/26/2025 1:32 PM EST Maria , Raleighh M, CASH REGISTER BALANCER * Pulse Answer Entry Date Author 78 10/26/2025 1:32 PM EST Maria , Raleighh M, CASH REGISTER BALANCER * Resp Answer Entry Date Author 24 10/26/2025 1:32 PM EST Maria , AntoniaYah M, CASH REGISTER BALANCER * SpO2 Answer Entry Date Author 97 10/26/2025 1:32 PM EST Maria , Raleighh M, CASH REGISTER BALANCER * Height Answer Entry Date Author 66 10/26/2025 1:32 PM EST Maria , AntoniaYah M, CASH REGISTER BALANCER * Weight Answer Entry Date Author 4261.05 10/26/2025 1:32 PM EST Maria , AntoniaYah M, CASH REGISTER BALANCER * BMI (Calculated) Answer Entry Date Author 43.1 10/26/2025 1:32 PM EST Maria , AntoniaYah M, CASH REGISTER BALANCER * Percent Excess Weight Loss Answer Entry Date Author 0 10/26/2025 1:32 PM EST Maria , AntoniaYah M, CASH REGISTER BALANCER * Total Weight Change Percent Answer Entry Date Author 2222 10/26/2025 1:32 PM EST Maria Jessica M, CASH REGISTER BALANCER * Weight Change Since Preop Answer Entry Date Author 120.77 10/26/2025 1:32 PM EST Maria , Jessica M, CASH REGISTER BALANCER * Initial Excess Weight Answer Entry Date Author -58.97 10/26/2025 1:32 PM EST Maria Jessica M, CASH REGISTER BALANCER * IBW in lbs (Bariatric) Answer Entry Date Author 130 10/26/2025 1:32 PM EST Roundtre e, Raleighh M, CASH REGISTER BALANCER * Weight Change Since Last Visit Answer Entry Date Author 120.77 10/26/2025 1:32 PM EST Maria , Raleighh M, CASH REGISTER BALANCER * IBW in kg (Bariatric) Answer Entry Date Author 58.97 10/26/2025 1:32 PM EST Maria , Jessica M, CASH REGISTER BALANCER * Percent of IBW Answer Entry Date Author 7,225.79 10/26/2025 1:32 PM EST Maria , Raleighh M, CASH REGISTER BALANCER * EBW (kg) Answer Entry Date Author 4,259.38 10/26/2025 1:32 PM EST Maria , Raleighh M, CASH REGISTER BALANCER * EBW (lbs) Answer Entry Date Author 4,252.93 10/26/2025 1:32 PM EST Maria , Raleighh M, CASH REGISTER BALANCER * Weight Change 24 hrs Answer Entry Date Author -.1 10/26/2025 1:32 PM EST Maria Jessica M, CASH REGISTER BALANCER * BSA (Calculated - sq m) Answer Entry Date Author 2.37 10/26/2025 1:32 PM EST Maria , AntoniaYah M, CASH REGISTER BALANCER * BMI (Calculated) Answer Entry Date Author 43 10/26/2025 1:32 PM EST Maria , Raleighh M, CASH REGISTER BALANCER * BP Location Answer Entry Date Author Right arm 10/26/2025 1:32 PM EST Maria , AntoniaYah M, CASH REGISTER BALANCER * IBW/kg (Calculated) Male Answer Entry Date Author 63.8 10/26/2025 1:32 PM EST Maria , AliConnieYah M, CASH REGISTER BALANCER * IBW/kg (Calculated) Female Answer Entry Date Author 59.3 10/26/2025 1:32 PM EST Jessica Sifuentes M, CASH REGISTER BALANCER * Restart Vitals Timer Answer Entry Date Author Yes 10/26/2025 1:32 PM EST Jessica Sifuentes M, CASH REGISTER BALANCER * IBW/kg (Calculated) Answer Entry Date Author 59.3 10/26/2025 1:32 PM EST Jessica Sifuentes M, CASH REGISTER BALANCER * Alcohol Use Concern Calculation Answer Entry Date Author 1 10/26/2025 1:33 PM EST Jessica Sifuentes M, CASH REGISTER BALANCER * Skip to questions 9-10? Answer Entry Date Author 1 10/26/2025 1:33 PM EST Jessica Sifuentes M, CASH REGISTER BALANCER * Restart Pain Assessment Timer Answer Entry Date Author Yes 10/26/2025 1:33 PM EST Jessica Sifuentes M, CASH REGISTER BALANCER * Weight in (lb) to have BMI = 25 Answer Entry Date Author 154.6 10/26/2025 1:32 PM EST Jessica Sifuentes M, CASH REGISTER BALANCER * BMI (Calculated) Answer Entry Date Author 43.1 10/26/2025 1:32 PM EST Jessica Sifuentes M, CASH REGISTER BALANCER * Percent Excess Weight Loss Answer Entry Date Author 0 10/26/2025 1:32 PM EST Jessica Sifuentes M, CASH REGISTER BALANCER * Weight Change Since Preop Answer Entry Date Author 120.8 10/26/2025 1:32 PM EST Jessica Sifuentes M, CASH REGISTER BALANCER * Initial Excess Weight Answer Entry Date Author -58.97 10/26/2025 1:32 PM EST MariaJessica marcus M, CASH REGISTER BALANCER * IBW in kg (Bariatric) Answer Entry Date Author 58.97 10/26/2025 1:32 PM EST MariaRaleigh marcush M, CASH REGISTER BALANCER * IBW in lb (Bariatric) Answer Entry Date Author 130 10/26/2025 1:32 PM EST Raleigh Sifuentesh M, CASH REGISTER BALANCER * Weight Change Since Last Visit Answer Entry Date Author -0.1 10/26/2025 1:32 PM EST MariaJessica olivas M, CASH REGISTER BALANCER * Percent of IBW Answer Entry Date Author 204.86 10/26/2025 1:32 PM EST MariaJessica marcus M, CASH REGISTER BALANCER * EBW (kg) Answer Entry Date Author 61.8 10/26/2025 1:32 PM EST Maria Jessica M, CASH REGISTER BALANCER * EBW (lb) Answer Entry Date Author 136.32 10/26/2025 1:32 PM EST Maria Jessica M, CASH REGISTER BALANCER * Difference in Weight Since Last Visit Answer Entry Date Author -0.1 10/26/2025 1:32 PM EST Maria Jessica M, CASH REGISTER BALANCER * Temp (in Celsius) for CADDO IV Answer Entry Date Author 36.6 10/26/2025 1:32 PM EST MariaJessica marcus M, CASH REGISTER BALANCER * IBW/kg (Calculated) Answer Entry Date Author 59.3 10/26/2025 1:32 PM EST Jessica Sifuentes M, CASH REGISTER BALANCER * Adult Low Range Vt 6mL/kg Answer Entry Date Author 355.8 10/26/2025 1:32 PM EST MariaJessica marcus M, CASH REGISTER BALANCER * Adult Moderate Range Vt 8mL/kg Answer Entry Date Author 474.4 10/26/2025 1:32 PM EST MariaJessica marcus M, CASH REGISTER BALANCER * Adult High Range Vt 10mL/kg Answer Entry Date Author 593 10/26/2025 1:32 PM EST Jessica Sifuentes M, CASH REGISTER BALANCER * Pain Score Answer Entry Date Author 0 10/26/2025 1:33 PM EST Jessica Sifuentes M, CASH REGISTER BALANCER * BP Cuff Size Answer Entry Date Author Adult 10/26/2025 1:32 PM EST Jessica Sifuentes M, CASH REGISTER BALANCER * Vitals Timer Question Answer Entry Date Author Restart Vitals Timer Yes 10/26/2025 1:[address] Raleigh Sifuentesh M, CASH REGISTER BALANCER * Patient Position Answer Entry Date Author Sitting 10/26/2025 1:32 PM EST Jessica Sifuentes M, CASH REGISTER BALANCER * Pain Screening Answer Entry Date Author 0-10 10/26/2025 1:33 PM EST Jessica Sifuentes CNA documented in this encounter Miscellaneous Notes * Progress Notes - Veronica Garcia, 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 @ 21w0d here today for return OB visit. Reports + FM. Denies vaginal bleeding, leakage of fluids and contractions. Visit Vitals BP 115/80 (BP Location: Right arm, Patient Position: Sitting, BP Cuff Size: Adult) Pulse 78 Temp 36.6 ??C (97.8 ??F) (Tympanic) Ht 1.676 m (5' 6 ) Wt 121 kg (266 lb 5.1 oz) SpO2 97% BMI 42.98 kg/m?? Physical Exam Constitutional: Appearance: Normal appearance. [...] Continues PNV Declines flu vaccine Anatomy US 10/12-EFW 295gm, AC 57%, breech/cephalic, posterior, fundal placenta, 3VC, AF normal, male, CL 40.0mm Growth US 11/16 Pre-diabetes Denies h/o T2DM Reports previous diagnosis of nph-ttkakwrm-wmtbvq of year Started Ozempic in 2023 and lost over 100lbs A1C 4.9 on 08/01 Declines diabetes education Dexcom avg 125, 77% in range (65-140), 23% high Continues Metformin 500mg BID. Instructed to increase to 1000mg BID CHTN H/o preeclampsia in G2 Discontinued Lisinopril @ 6 weeks gestation BP today 115/80 Reports BP's @ home 120's/70's Continues Labetalol 200mg daily and ASA 81mg Obesity BMI 42.98 AMA Reports negative NIPT Prior section x 2 G1-arrest of dilation G2-R C/S Plan for R C/S Has appt in [place] on 11/14 RTC in 3 weeks documented in this encounter Plan of Treatment Upcoming Encounters Date Type Department Care Team ([facility] st Contact Info) Description 11/16/2025 11:30 AM EST Appointment Medical Office Building Obstetrics and Gynecology [address], [address] [place] [address] 11/16/2025 3:45 PM EST Routine [facility] [address] [place] [address] Debra Olguin MD [address] [place] [address] Scheduled Referrals Name Type Priority Associated Diagnoses Orde r Schedule Follow Up OBGYN Outpatient Referral Routine Supervision of high risk , antepartum Expected: 11/16/2025, Expires: 11/26/2026 documented as of this encounter Procedures Procedure Name Priority Date/Time Associated Diagnosis Comments POCT URINALYSIS DIPSTICK Routine 10/26/2025 1:38 PM EST Supervision of high risk , antepartum documented in this encounter Results * POCT Urinalysis Dipstick (10/26/2025 1:38 PM EST) POCT Urine Color Yellow POCT Urine Clarity Clear POCT Glucose Urine Negative Negative mg/dL POCT Bilirubin, Urine Negative Negative POCT Ketones, Urine Negative Negative mg/dL POCT Specific [place], Urine >=1.030 POCT Blood, Urine Negative Negative POCT pH, Urine 5.5 5.0 to 8.0 POCT Protein, Urine Negative Negative mg/dL POCT Urobilinogen, Urine 1 0.2, 1 E.U./dL POCT Nitrite, Urine Negative Negative POCT Leukocyte Esterase, Urine Negative Negative Test Strip Lot Number [id number] Test Strip Lot Expiration 07/2026 Urine Urine specimen obtained by clean catch procedure / Unknown 10/26/2025 1:38 PM EST us Debra Olguin MD POINT OF CARE TEST ENTER/ED IT ORDERABLES Final Result documented in this encounter Visit Diagnoses Diagnosis Supervision of high risk , antepartum- Primary documented in this encounter Additional Health Concerns Assessment Noted Time PHQ-9 Depression Total Score: 0 09/26/20 3:20 PM EST documented as of this encounter Care Teams Scaleman Relationship Specialty Start Date End Date Pcp, Krista [address] [place] [address] PCP - General Family Medicine 10/12/25 documented as of this encounter
--- NOTE | 2025-11-06 15:00 | US_ITS ---
PROCEDURE: US OB FOLLOW UP CLINICAL INDICATION: spine, heart and facial views COMPARISON: US US OB TRANSVAGINAL from 07/17/2025 US US OB <= 14 WEEKS FETUS from 07/24/2025 US US OB /MATERNAL DETAIL from 10/19/2025 FINDINGS: Transabdominal sonographic images of the pelvis were obtained. The following parameters are obtained: From her established due date she is 22weeks 4days Viable fetus in the breech presentation with a profile not well visualized. Lateral/posterior placenta grade 1. The cervix measures 3.21 cm Difficult exam secondary to maternal obesity. heart rate: 156bpm bpm. BPD: 22weeks 4days HC: 22weeks 3days Amniotic fluid: MVP 4.17 cm No obvious anomalies evident. profile seen, stomach, bladder, kidneys, three-vessel cord, four chamber heart appear normal. heart: LVOT, RVOT, three-vessel view, four-chamber heart all appear normal. face: Lips, nose, appear normal, spine: Cervical, thoracic, spine appear normal. Lumbar spine still not seen IMPRESSION: 1. Viable fetus in the breech presentation with a posterolateral placenta grade 1. 2. Difficult exam due to position and maternal obesity. 3. The fluid is within normal limits with an MVP 4.17 cm. 4. profile and lower spine are still not completely visualized. The heart appears normal today. Suggest repeat scan in 4 weeks. 5. The rest of the limited anatomical scan appears normal. Dictated by: Karl Hernandez MD 11/07/2025 11:26 Karl Hernandez MD in [place] 11/07/2025 11:26
--- OUTSIDE RECORDS SUMMARY | 2025-11-06 15:08 | XMS_ITS | Clinical Summary ---
Author Organization [facility] lin Address [address] [place] [address] Care Team Providers Care Firer Marine Name Role Phone Pcp, No Primary Care Provider [phone] Social History Tobacco Use Types Packs/Day Years Used Date Smoking Tobacco: Never Assessed Comments Unknown Sex and Gender Information Value Date Recorded Sex Assigned at Not on file Legal Sex Female 1:29 PM EST Gender Identity Not on file Sexual Orientation Not on file Plan of Treatment Not on file Medical Devices Not on file Care Teams Firer Marine Relationship Specialty Start Date End Date PcpKrista PCP - General Family Medicine 09/23/21
--- OUTSIDE RECORDS SUMMARY | 2025-11-06 15:08 | XMS_ITS | Clinical Summary ---
Author Organization [facility] Address [address] [place] [address] Care Team Providers Care College Or University Registrar Name Role Phone Pcp, No Primary Care Provider Unavailabl e Allergies No known active allergies Medications aspirin 81 MG EC tablet Take 1 tablet by mouth daily. Active Continuous Glucose Sensor (Dexcom G7 Sensor) misc use as directed 5 Active ferrous sulfate 324 (65 Fe) MG EC tablet Take 1 tablet by mouth daily with breakfast. Do not crush, chew, or split. Active cholecalciferol (Vitamin D-3) 250 MCG (14324 UT) capsule Take 1 capsule by mouth daily. Active ascorbic acid (vitamin C) 1000 MG tablet Take 1 tablet by mouth daily. Active Vit-Fe Fumarate-FA ( VITAMINS PO) Take 1 tablet by mouth daily. Active labetalol (Normodyne) 200 MG tablet Take 1 tablet by mouth 2 times a day. Active FreeStyle Lancets USE DIRECTED TO TEST THREE TIMES DAILY NEEDED 5 Active FREESTYLE LITE test strip USE DIRECTED TO TEST THREE TIMES DAILY NEEDED 5 Active Blood Glucose Monitoring Suppl (FreeStyle Lite) w/Device kit USE DIRECTED TO TEST THREE TIMES DAILY NEEDED 5 Active Alcohol Swabs pads Apply 1 pad 3 times a day by topical route for 30 days, for testing. 5 Active metFORMIN XR (Glucophage-XR) 500 MG 24 hr tabletIndicatio ns:Supervision of high risk , antepartum Take 2 tablets by mouth 2 times a day. Do not crush, chew, or split. 120 tablet 3 12/26/202 5 04/25/20 26 Active metFORMIN XR (Glucophage-XR) 500 MG 24 hr tablet Take 1 tablet by mouth 2 times a day. Do not crush, chew, or split. 60 tablet 2 11/03/20 25 Discontinu ed(Reorder ) Encounters Date Type Department Care Team Description 11/03/2025 Telephone Medical Office Building Obstetrics and Gynecology [address] [facility], [address] [place] [address] Veronica Garcia APRN Med Refill 10/26/2025 2:45 PM EST Routine [facility] [address], [address] [place] [address] Debra Olguin MD Supervision of high risk , antepartum (Primary Dx) 10/26/2025 Travel 10/12/2025 1:15 PM EST Routine [facility] [address], [address] [place] [address] Debra Olguin MD Supervision of high risk , antepartum (Primary Dx) 10/12/2025 11:00 AM EST - 10/12/2025 11:59 PM EST Hospital Encounter Medical Office Building Obstetrics and Gynecology [address] [facility], [address] [place] [address] Type 2 diabetes mellitus during , antepartum, second trimester; Obesity Discharge Disposition: Home or Self Care 10/12/2025 Travel 09/26/2025 2:30 PM EST Initial [facility] [address], [address] [place] [address] Debra Olguin MD GA: [id number] 09/26/2025 Travel from Last 3 Months Family History Medical History Relation Name Comments Diabetes type II Father Heart attack Father Anemia Mother Diabetes type II Mother Heart attack Mother Hypercholesterolemia Mother Hypertension Mother Relation Name Status Comments Father Mother Social History Tobacco Use Types Packs/Day Years [...] often do you attend chur ch or mandaen services? Never 09/26/2025 Do you belong to any clubs o r organizations such as moravian groups, unions, fraternal or athletic groups, or [...] and heating? Not hard at all 09/26/2025 [facility] [place] [facility] Occupat ional Health - Occupational Stress [...] any time in the past 12 m [facility], were you homeless or living in a mcfp (including now)? No 09/26/2025 [facility] Utilities Answer Date Recorded In the past 12 months has e electric, gas, oil, or water [employer] threatened to shut off services in your home? No 09/26/2025 [place] Depression Scale Answer Date Recorded [place] Depression Scale Total 0 09/26/2025 The thought [...] file Not on file Not on file Last Filed Vital Signs [...] Mass Index 42.98 10/26/2025 1:32 PM EST Plan of Treatment Upcoming Encounters Date Type Department Care Team ([facility] st Contact Info) Description 11/16/2025 11:30 AM EST Appointment Medical Office Building Obstetrics and Gynecology [address] [facility], [address] [place] [address] 11/16/2025 3:45 PM EST Routine [facility] [address], [address] [place] [address] Debra Olguin MD [address] [facility] [address] [place] [address] Health Maintenance Due Date Last Done Comments [facility]-HIV Screening 1988 [facility]-Hepatitis C Screening 1988 [facility]-/Child/Adol SDOH Screenings 1988 [facility]-Obesity Intervention 1994 [facility]-Varicella Vaccines (1 of 2 - 13+ 2-dose series) 2001 [facility]-DTaP,Tdap,and Td Vaccine s (2 - Tdap) 01/06/2003 01/05/2003 [facility]-Pneumococcal Vaccine: Pediatrics (0 to 5 Years) and At-Risk Patients (6 to 49 Years) (1 of 2 - PCV) 2007 [facility]-Pap Smear 2009 [facility]-Cervical Cancer Screening 2018 [facility]-HPV/Cotest 2018 [id number] Vaccine (3 - Pfizer risk series) 09/03/2021 08/06/2021, 07/16/2021 [facility]-Influenza Vaccine (#1) 07/10/202508/10, 10/01/2010 [facility]- SDOH Screenings 03/26/2026 [facility]-Adult SDOH Screenings 03/26/2026 09/26/2025 [facility]-Depression Screening 09/26/2026 025, 09/26/2025, 09/26/2025 [facility]-Zoster Vaccines (1 of 2) 2038 [facility]-Hepatitis B Vaccines Completed 000, 08/15/1999, 07/11/1999 HPV Vaccines (No Doses Required) Completed [facility]-HIB Vaccines Aged Out No longer e ligible based on patient's age to complete this topic [facility]-Hepatitis A Vaccines Aged Out No longer eligible based on patient's age to complete this topic [facility]-IPV Vaccines Aged Out No longer e ligible based on patient's age to complete this topic [facility]-RSV Vaccine: 60+ Years o r (No Doses Required) Completed [facility]-Rotavirus Vaccines Aged Out No lo nger eligible based on patient's age to complete this topic Procedures Procedure Name Priority Date/Time Associated Diagnosis Comments POCT URINALYSIS DIPSTICK Routine 10/26/2025 1:38 PM EST Supervision of high risk , antepartum POCT URINALYSIS DIPSTICK Routine 10/12/2025 1:24 PM EST Supervision of high risk , antepartum OB US DETAIL ANATOMY Routine 10/12/2025 12:10 PM EST Type 2 diabetes mellitus during , antepartum, second trimester Obesity POCT URINALYSIS DIPSTICK Routine 09/26/2025 3:24 PM EST Supervision of high risk , antepartum from Last 3 Months Results * POCT Urinalysis Dipstick (10/26/2025 1:38 PM EST) Only the most recent of3 resultswithin the time period is included. POCT Urine Color Yellow POCT Urine Clarity Clear POCT Glucose Urine Negative Negative mg/dL POCT Bilirubin, Urine Negative Negative POCT Ketones, Urine Negative Negative mg/dL POCT Specific [place], Urine >=1.030 POCT Blood, Urine Negative Negative POCT pH, Urine 5.5 5.0 to 8.0 POCT Protein, Urine Negative Negative mg/dL POCT Urobilinogen, Urine 1 0.2, 1 E.U./dL POCT Nitrite, Urine Negative Negative POCT Leukocyte Esterase, Urine Negative Negative Test Strip Lot Number [id number] Test Strip Lot Expiration 07/2026 Urine Urine specimen obtained by clean catch procedure / Unknown 10/26/2025 1:38 PM EST us Debra Olguin MD POINT OF CARE TEST ENTER/ED IT ORDERABLES Final Result * OB US Detail Anatomy (10/12/2025 12:10 PM EST) Anatomical Region Laterality Modality Body Ultrasound 10/12/2025 11:2 6 AM EST Impressions 10/13/2025 8:21 AM EST The OB Ultrasound you requested has been resulted. Please navigate to the Imaging tab in Functional Neuromodulation for review. This message has been generated by the interface. Narrative Procedure Note Marcela Heredia MD - 10/13/2025 IMPRESSION: The OB Ultrasound you requested has been resulted. Please navigate to theImaging tab in Functional Neuromodulation for review. This message has been generated by theinterface. us Veronica Arciniega DO IMG OB US PROCEDURES Final Res ult from Last 3 Months Insurance [place] [address] Care Teams College Or University Registrar Relationship Specialty Start Date End Date Pcp, Krista [address] [place] [address] PCP - General Family Medicine 10/12/25
--- OUTSIDE RECORDS SUMMARY | 2025-11-06 15:09 | XMS_ITS | Clinical Summary ---
Author Organization [facility] Address [address] [place] [address] Care Team Providers Care Food And Beverage Intern Name Role Phone Shira Canchola Primary Care Provider [phone] Allergies No known active allergies Medications * [...] due to her children not having a cancer center director. Patient sister is here with her today [...] plans to have very surgical intervention at [facility]. Hyperlipidemia Vitamin D deficiency Heartburn Anxiety Depression [...] (2 of 3 - 3-dose series) 02/14/200001/07 TDAP/TD VACCINES (2 - Tdap) 01/06/2003 01/05/2003 Pneumococcal Vaccine 0-49 (1 of 2 - PCV) 2007 PAP SMEAR 2009 ANNUAL PHYSICAL 07/04/2020 HEPATITIS C SCREENING 07/04/2020 [...] - 08/15/2020 6:07 PM EDT Performed at: [address] [place] [address] [address] [place], [place] [id number] Route Delivery Clerk: Michael iDane MD, Phone: [phone] Patient Fasting: N Nadia YEE LAB BLOOD ORDERABLES Final Result Performing Organization Address City/[facility]/ZIP Co de Phone Number [facility] [address] [place] [address], [facility] [address] [place] [address], * Lipid Panel (08/14/2020 10:44 AM EDT) [facility] Total Cholesterol 118 0 - 200 mg/dL [...] - 08/15/2020 6:07 PM EDT Performed at: [address] [place] [address] [address] [place], [place] [id number] Route Delivery Clerk: Michael Diane MD, Phone: [phone] Patient Fasting: N Nadia YEE LAB BLOOD ORDERABLES Final Result Performing Organization Address [facility]/ZIP Co de Phone Number [facility] [address] [place] [address], [facility] [address] [place] [address], from Last 3 Months or Most Recently Relevant to Health Maintenance Insurance [employer] Care Teams Food And Beverage Intern Relationship Specialty Start Date End Date Shira Canchola PA PCP - General Physician Feeder Operator Automatic 01/20/20
--- OUTSIDE RECORDS SUMMARY | 2025-11-06 15:09 | XMS_ITS | Encounter Summary ---
Author Organization Healthcare Address [address] [place] [address] Care Team Providers Care Car Salesman Name Role Phone Unavailable Primary Care Provider Unavailabl e Encounter Details Date Type Department Care Team (Latest Contact Info) Description 09/26/2025 Travel Social History Tobacco Use Types Packs/Day Years [...] week 09/26/2025 How often do you attend [facility] or presybeterian services? Never 09/26/2025 Do you belong to any clubs o r organizations such as restoration groups, unions, fraternal or athletic groups, or [...] and heating? Not hard at all 09/26/2025 [facility] Occupat ional Health - [...] any time in the past 12 m onths, were you homeless or living in a assisted (including now)? No 09/26/2025 [facility] Utilities Answer Date Recorded In the past 12 months has th e electric, gas, oil, or water company threatened to shut off services in your home? No 09/26/2025 [place] Depression Scale Answer Date Recorded [place] Depression Scale Total 0 09/26/2025 The thought [...] on file documented as of this encounter Functional Status * Communicable Disease Screening Question Answer Date of Assessment Author Have you been in contact wit h someone who was sick? No / Unsure 09/26/2025 2:04 PM Kannan Fairbanks Do you have any of the follo wing new or worsening symptoms? None of these 09/26/2025 2:04 PM Marely Fairbanks T * Travel Screening Question Answer Date of Assessment Author Have you traveled internatio ronnell or domestically in the last month? No 09/26/2025 2:04 PM Kannan Fairbanks documented as of this encounter Mental Status * Communicable Disease Screening Question Answer Entry Date Author Have you been in contact wit h someone who was sick? No / Unsure 09/26/2025 2:04 PM Kannan Fair[place] Do you have any of the follo wing new or worsening symptoms? None of these 09/26/2025 2:04 PM EST Marely Wing * Travel Screening Question Answer Entry Date Author Have you traveled internatio ronnell or domestically in the last month? No 09/26/2025 2:04 PM EST Kannan Wing documented in this encounter Plan of Treatment Upcoming Encounters Date Type Department Care Team ([facility] st Contact Info) Description 11/16/2025 11:30 AM EST Appointment Medical Office Building Obstetrics and Gynecology [address] [facility], [address] [place] [address] 11/16/2025 3:45 PM EST Routine [facility] [address], [address] [place] [address] Debra Olguin MD [address] [facility] [address] [place] [address] documented as of this encounter Visit Diagnoses Not on filedocumented in this encounter Additional Health Concerns Assessment Noted Time PHQ-9 Depression Total Score: 0 09/26/20 25 3:20 PM EST documented as of this encounter
--- OUTSIDE RECORDS SUMMARY | 2025-11-06 15:09 | XMS_ITS | Encounter Summary ---
Author Organization [facility] Address [address] [place] [address] Care Team Providers Care Silver Cleaner Name Role Phone Pcp, No Primary Care Provider Unavailabl e Encounter Details Date Type Department Care Team (Latest Contact Info) Description 10/12/2025 Travel Social History Tobacco Use Types Packs/Day [...] often do you attend chur ch or latter-day services? Never 09/26/2025 Do you belong to [...] and heating? Not hard at all 09/26/2025 [facility] Occupat ional Health - Occupational [...] any time in the past 12 m [facility], were you homeless or living in a senior living (including now)? No 09/26/2025 [facility] Utilities Answer Date Recorded In the past 12 months has th e electric, gas, oil, or water company threatened to shut off services in your home? No 09/26/2025 [place] Depression Scale Answer Date Recorded [place] Depression Scale Total 0 09/26/2025 The thought [...] someone who was sick? No / Unsure 10/12/2025 11:00 AM Josselyn Romo Do you have any of the follo wing new or worsening symptoms? None of these 10/12/2025 11:00 AM Suly Romo ra * Travel Screening Question Answer Date of Assessment Author Have you traveled internatio ronnell or domestically in the last month? No 10/12/2025 11:00 AM Josselyn Tucker documented as of this encounter Mental Status * Communicable Disease Screening Question Answer Entry Date Author Have you been in contact wit h someone who was sick? No / Unsure 10/12/2025 11:00 AM Josselyn Romo Do you have any of the follo wing new or worsening symptoms? None of these 10/12/2025 11:00 AM EST Suly Barnhart ra * Travel Screening Question Answer Entry Date Author Have you traveled internatio ronnell or domestically in the last month? No 10/12/2025 11:00 AM EST Gabe lashon Josselyn documented in this encounter Plan of Treatment Upcoming Encounters Date Type Department Care Team (Late st Contact Info) Description 11/16/2025 11:30 AM EST Appointment Medical Office Building Obstetrics and Gynecology [address] [facility], [address] [place] [address] 11/16/2025 3:45 PM EST Routine [facility] [address] [facility], [address] [place] [address] Debra Olguin MD [address] [facility] [address] [place] [address] documented as of this encounter Visit Diagnoses Not on filedocumented in this encounter Additional Health Concerns Assessment Noted Time PHQ-9 Depression Total Score: 0 09/26/20 25 3:20 PM EST documented as of this encounter Care Teams Silver Cleaner Relationship Specialty Start Date End Date Pcp, No [address] [place] [address] PCP - General Family Medicine 10/12/25 documented as of this encounter
--- OUTSIDE RECORDS SUMMARY | 2025-11-06 15:09 | XMS_ITS | Encounter Summary ---
Author Organization Healthcare Address [address] [place] [address] Care Team Providers Care Chart Calculator Name Role Phone Pcp, No Primary Care Provider Unavailabl e Encounter Details Date Type Department Care Team (Latest Contact Info) Description 10/26/2025 Travel Social History Tobacco Use Types Packs/Day [...] often do you attend chur ch or sabianist services? Never 09/26/2025 Do you belong to [...] and heating? Not hard at all 09/26/2025 [facility] Occupat ional Health - [...] any time in the past 12 m [facility], were you homeless or living in a nursing home (including now)? No 09/26/2025 [facility] Utilities Answer Date Recorded In the past 12 months has th e electric, gas, oil, or water company threatened to shut off services in your home? No 09/26/2025 [place] Depression Scale Answer Date Recorded [place] Depression Scale Total 0 09/26/2025 The thought [...] someone who was sick? No / Unsure 10/26/2025 1:19 PM Heydi Kidd Do you have any of the following new or worsening symptoms? None of these 10/26/2025 1:19 PM Heydi Kidd * Travel Screening Question Answer Date of Assessment Author Have you traveled internatio ronnell or domestically in the last month? No 10/26/2025 1:19 PM Heydi Schaefer documented as of this encounter Mental Status * Communicable Disease Screening Question Answer Entry Date Author Have you been in contact wit h someone who was sick? No / Unsure 10/26/2025 1:19 PM Heydi Kidd Do you have any of the following new or worsening symptoms? None of these 10/26/2025 1:19 PM EST Heydi Burgos * Travel Screening Question Answer Entry Date Author Have you traveled internatio ronnell or domestically in the last month? No 10/26/2025 1:19 PM EST Heydi Dillon documented in this encounter Plan of Treatment Upcoming Encounters Date Type Department Care Team ([facility] st Contact Info) Description 11/16/2025 11:30 AM EST Appointment Medical Office Building Obstetrics and Gynecology [address] [facility], [address] [place] [address] 11/16/2025 3:45 PM EST Routine [facility] [address] [facility], [address] [place] [address] Debra Olguin MD [address] [facility] [address] [place] [address] documented as of this encounter Visit Diagnoses Not on filedocumented in this encounter Additional Health Concerns Assessment Noted Time PHQ-9 Depression Total Score: 0 09/26/20 3:20 PM EST documented as of this encounter Care Teams Chart Calculator Relationship Specialty Start Date End Date Pcp, No [address] [place] [address] PCP - General Family Medicine 10/12/25 documented as of this encounter
--- OUTSIDE RECORDS SUMMARY | 2025-11-06 15:09 | XMS_ITS | Encounter Summary ---
Author Organization [facility] Address [address] [place] [address] Care Team Providers Care Financial Advisor Trainee Name Role Phone Pcp, No Primary Care Provider Unavailabl e Reason for Visit * Reason Onset Date Comments Med Refill 11/03/2025 Encounter Details Date Type Department Care Team ([facility] Contact Info) Description 11/03/2025 Telephone Medical Office Building Obstetrics and Gynecology [address] [facility], [address] [place] [address] Veronica Garcia, SPECIAL FORCES SENIOR SERGEANT [address] [facility] [address] [place] [address] Med Refill Social History Tobacco Use Types Packs/Day Years [...] How often do you attend chur or sikh services? Never 09/26/2025 Do you belong to [...] and heating? Not hard at all 09/26/2025 [facility] Questionnaire Answer Date [...] were you homeless or living in a mcc (including now)? No 09/26/2025 [facility] Utilities Answer Date Recorded In the past 12 months has th e electric, gas, oil, or water company threatened to shut off services in your home? No 09/26/2025 [place] Depression Scale Answer Date Recorded [place] Depression Scale Total 0 09/26/2025 The thought [...] on file documented as of this encounter Miscellaneous Notes * Telephone Encounter - Maday Santos RN - 11/03/2025 11:25 AM EST RN refilled metformin as requested and documented in last note, and called patient and notified herit has been sent. Maday Santos RN documented in this encounter Plan of Treatment Upcoming Encounters Date Type Department Care Team (Late st Contact Info) Description 11/16/2025 11:30 AM EST Appointment Medical Office Building Obstetrics and Gynecology [address] [facility], [address] [place] [address] 11/16/2025 3:45 PM EST [facility] [address], [address] [place] [address] Debra Olguin MD [address] [facility] [address] [place] [address] documented as of this encounter Visit Diagnoses Diagnosis Supervision of high risk , antepartum- Primary documented in this encounter Additional Health Concerns Assessment Noted Time PHQ-9 Depression Total Score: 0 09/26/20 3:20 PM EST documented as of this encounter Care Teams Financial Advisor Trainee Relationship Specialty Start Date End Date Pcp, [place] [address] PCP - General Family Medicine 10/12/25 documented as of this encounter
--- OUTSIDE RECORDS SUMMARY | 2025-11-06 15:09 | XMS_ITS | Clinical Summary ---
Author Organization [employer] ([place], [place], [place], [place], [place]) Address [address] [place] [address] Care Team Providers Care Sensor Operator Name Role Phone Sushant Shira Iqbal PA-C Primary Care Provider Allergies No known active allergies Medications ergocalciferol [...] Date Raymond rded Speak language other than [place] at home Not on file 11/28/2023 Want help with school or training Not on file 11/28/2023 Substance Use Answer Date Recorded Used prescription meds for non-medical reasons N ot on file 11/28/2023 Used illegal drugs past 12 months Not on file 11/28/2023 Comments Unknown Sex and Gender Information Value Date Recorded Sex Assigned at Not on file Legal Sex Female 1:08 PM LICENSED PROSTHETIST Gender Identity Not on file Sexual Orientation [...] - 249 mg/dL 11/13/2022 9:58 AM EST [facility] Cholesterol 164 0 - [...] 0 - 99 mg/dL 11/13/2022 9:58 AM [facility] RISK COMP 3 11/13/2022 9:58 AM [facility] Blood Venipuncture / Unknown 11/13/2022 7:08 AM EST 11/13/2022 7:14 AM EST us Talia Rhodes PA-C LAB BLOOD ORDERABLES Fin al Result [facility] [address] [phone] from Last 3 Months or Most Recently Relevant to Health Maintenance Insurance [facility] Advance Directives For more information, please contact: [phone] Documents on File Type Date Recorded Patient Electromedical Equipment Repairer Expl anation Advance Directives and Livin g Will 11/13/2022 6:33 AM * Full Code (Latest Code Status on File) Date Activated Date Inactivated Comments 11/13/2022 5:57 AM 11/14/2022 5:18 AM Care Teams Sensor Operator Relationship Specialty Start Date End Date Shira Canchola, SHELLIE [address] [place] [address] PCP - General Physician Technical Consultant 11/13/22
--- OUTSIDE RECORDS SUMMARY | 2025-11-06 15:09 | XMS_ITS | Referral Summary ---
Author Organization [facility] ([place], [place], [place], [place], [place]) Address [address] [place] [address] Care Team Providers Care Recreational Therapy Technician Name Role Phone Sushant Shira Iqbal PA-C Primary Care Provider [phone] Allergies No known active allergies Medications ergocalciferol [...] Date Raymond rded Speak language other than Uzbek at home Not on file 11/28/2023 Want help with school or training Not on file 11/28/2023 Substance Use Answer Date Recorded Used prescription meds for non-medical reasons N ot on file 11/28/2023 Used illegal drugs past 12 months Not on file 11/28/2023 Comments Unknown Sex and Gender Information Value Date Recorded Sex Assigned at Not on file 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 Gender Identity Not on file Sexual Orientation [...] 0 - 249 mg/dL 11/13/2022 9:58 AM [facility] Cholesterol 164 0 - 199 mg/dL 11/13/2022 9:58 AM [facility] Comment: 200 to 239 mg/dL = Moderate (borderline) >239 mg/dL = High HDL Cholesterol 47 >=40 mg/dL 11/13/2022 9:58 AM [facility] Comment: >=60 mg/dL = Desirable <40 mg/dL = Increased Risk All other components are listed individually or are calculations VLDL Cholesterol 19.4 5 - 40 mg/dL 11/13/2022 9:58 AM [facility] Cholesterol/HDL ratio 3.5(H) 0.0 - 3.2 11/13/2022 9:58 AM [facility] LDl/HDL Ratio 2 0 - 4 11/13/2022 9:58 AM [facility] LDL Cholesterol, Calculated 98 0 - 99 mg/dL 11/13/2022 9:58 AM EST [facility] RISK COMP 3 11/13/2022 9:58 AM EST [facility] Blood Venipuncture / Unknown 11/13/2022 7:08 AM EST 11/13/2022 7:14 AM EST us Talia Rhodes PA-C LAB BLOOD ORDERABLES Fin al Result [facility] [address] [id number] [phone] from Last 3 Months or Most Recently Relevant to Health Maintenance Insurance [place] [id number] Advance Directives For more information, please contact: [phone] Documents on File Type Date Recorded 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
== END 2025-11-06 23:59 | disposition home or self-care (01) ==
LOC: RAD 15:00
PROVIDERS: PCP Physician Assistant; Visit Provider Obstetrics & Gynecology
DX: O32.1XX0 Maternal care for breech presentation, not applicable or unspecified (principal); O10.912 Unspecified pre-existing hypertension complicating pregnancy, second trimester; O24.419 Gestational diabetes mellitus in pregnancy, unspecified control; O99.212 Obesity complicating pregnancy, second trimester; O09.522 Supervision of elderly multigravida, second trimester; O99.891 Other specified diseases and conditions complicating pregnancy; E66.9 Obesity, unspecified; Z28.39 Other underimmunization status; Z3A.22 22 weeks gestation of pregnancy
CPT/HCPCS: 76816